=== PATIENT | female | born 1930 | race Caucasian/White ===

== ENCOUNTER 2018-02-13 13:43 | Inpatient (IN) | payer MEDICARE, MEDICAID ==
[2018-02-13 14:25] LABS: % BASOPHILS 0.2 % (0.0-2.0); % EOSINOPHILS 4.7 % (0.0-5.0); % LYMPHOCYTES 29.2 % (20.0-50.0); % MONOCYTES 7.9 % (2.0-10.0); EOSINOPHILE ABSOLUTE 0.3 Th/cmm (0.1-0.4); HEMATOCRIT 40.2 % (41.0-60); HEMOGLOBIN 13.7 gm/dL (12-16); LYMPHOCYTE ABSOLUTE 2.1 Th/cmm (1.5-3.0); MEAN CELL VOLUME 94.8 fl (81-100); MEAN CORPUSCULAR HEMOGLOBIN 32.3 pg (27.0-31.0); MEAN CORPUSCULAR HGB CONC 34.1 pg (28.0-36.0); MEAN PLATELET VOLUME 7.3 fl; MONOCYTE ABSOLUTE 0.6 Th/cmm (0.3-1.0); NEUTROPHILE ABSOLUTE 4.3 Th/cmm (1.8-8.0); PLATELET COUNT 191 Th/cmm (150-400); RED BLOOD COUNT 4.24 Mil/cmm (3.80-5.20); RED CELL DISTRIBUTION WIDTH 12.6 % (11.5-20.0); WHITE BLOOD COUNT 7.3 Th/cmm (4.8-10.8)
[2018-02-13 14:46] LABS: URINE SOURCE CLEAN C
[2018-02-13 14:46] LABS: ALB/GLOB RATIO 1.4 (1.0-1.8); ALBUMIN 4.2 gm/dL (3.7-5.3); ALKALINE PHOSPHATASE 79 U/L (34-104); BILIRUBIN,TOTAL 0.5 mg/dL (0.3-1.0); BUN - UREA NITROGEN 12 mg/dL (7-25); CALCIUM SERUM 9.7 mg/dL (8.6-10.3); CARBON DIOXIDE 26.6 mEq/L (21.0-31.0); CHLORIDE 103 mEq/L (98-107); CHOLESTEROL 202 mg/dL (<200); GLUCOSE 121 mg/dL (70-105); HDL -HIGH DENSITY LIPOPROTEIN 62 mg/dL (23-92); POTASSIUM SERUM 3.6 mEq/L (3.5-5.1); SGOT 13 U/L (13-39); SGPT/ALT 12 U/L (7-52); SODIUM SERUM 136 mEq/L (136-145); TOTAL PROTEIN,SERUM 7.2 gm/dL (6.0-8.3); TRIGLYCERIDES 200 mg/dL (<150)
[2018-02-13 14:47] LABS: ACETAMINOPHEN < 10.0 ug/mL (10.0-30.0); SALICYLATES (ASPIRIN) < 25.0 mg/L (30.0-100.0)
[2018-02-13 14:47] LABS: URINE BILIRUBIN NEGATIVE (NEGATIVE); URINE BLOOD NEGATIVE (NEGATIVE); URINE CLARITY CLEAR (CLEAR); URINE COLOR YELLOW; URINE GLUCOSE (UA) NEGATIVE (NEGATIVE); URINE KETONE NEGATIVE (NEGATIVE); URINE LEUKOCYTE ESTERASE TRACE (NEGATIVE); URINE MICROSCOPIC INDICATED? YES; URINE NITRATE NEGATIVE (NEGATIVE); URINE PH 6.5 (4.6 - 8.0); URINE PROTEIN NEGATIVE (NEGATIVE); URINE UROBILINOGEN 0.2 E.U./dL (0.2 - 1.0)
[2018-02-13 14:50] LABS: URINE BACTERIA 1+ /hpf (NONE SEEN); URINE EPITHELIAL CELLS FEW /lpf (FEW); URINE RBC 0-2 /hpf (0-5)
[2018-02-13 15:16] LABS: AMPHETAMINE URINE NEGATIVE (NEGATIVE); BARBITURATES URINE NEGATIVE (NEGATIVE); BENZODIAZEPINES QUAL URINE NEGATIVE (NEGATIVE); CANNABINOID THC NEGATIVE (NEGATIVE); COCAINE METABOLITE QUAL URINE NEGATIVE (NEGATIVE); METHADONE URINE NEGATIVE (NEGATIVE); METHAMPHETAMINES QUAL URINE NEGATIVE (NEGATIVE); OPIATES (MORPHINE) QUAL. URINE NEGATIVE (NEGATIVE); PHENCYCLIDINE (PCP) URINE NEGATIVE (NEGATIVE); TRICYCLICS (TCA) QUAL. URINE NEGATIVE (NEGATIVE)
--- NOTE | 2018-02-13 15:42 | ED Physician Chart ---
ED Chief Complaint/HPI - Patient Information Date Seen:: 02/13/18 Time Seen:: 14:00 Chief Complaint:: Hallucinations History of Present Illness:: onset x 3 days of hallucinations; no report of trauma, SIs, H/, neck pain, C/P , SOB, Abd.Pain, A/N/V/D/C, fever, chills, or weakness Allergies:: Allergies Allergy/AdvReac Type Severity Reaction Status Date / Time Penicillins [PCN] Allergy Verified 02/13/18 13:56 Vitals:: Vital Signs - 8 hr 02/13/18 13:58 Temp 97.5 F HR 79 RR 16 BP 135/75 O2 Sat % 96 Historian:: Patient, EMS Review:: Nurse's Note Reviewed, Old Chart Reviewed, EMS run form Reviewed ED Review of Systems - Review of Systems General/Constitutional: No fever, No chills, No weight loss, No weakness, No diaphoresis, No edema, No loss of appetite Skin: No skin lesions, No rash, No bruising Head: No headache, No light-headedness Eyes: No loss of vision, No pain, No diplopia ENT: No earache, No nasal drainage, No sore throat, No tinnitus Neck: No neck pain, No swelling, No thyromegaly, No stiffness, No mass noted Cardio Vascular: No chest pain, No palpitations, No PND, No orthopnea, No edema Pulmonary: No SOB, No cough, No sputum, No wheezing GI: No nausea, No vomiting, No diarrhea, No pain, No melena, No hematochezia, No constipation, No hematemesis G/U: Dysuria, No frequency, No hematuria, No nacturia [employer]: No vaginal discharge, No abnormal vaginal bleed, No contraction Musculoskeletal: No bone or joint pain, No back pain, No muscle pain Endocrine: No polyuria, No polydipsia Psychiatric: Prior psych history, No depression, No anxiety, No suicidal ideation, No homicidal ideation, Auditory hallucination, No visual hallucination Hematopoietic: No bruising, No lymphadenopathy Allergic/Immuno: No urticaria, No angioedema Neurological: No syncope, No focal symptoms, No weakness, No paresthesia, No headache, No seizure, No dizziness, Confusion, No vertigo ED Past Medical History - Past Medical History Obtainable: Yes Past Medical History: HTN, Dementia, Other (UTI) Family History: HTN Social History: Non Smoker, No Alcohol, No Drug Use, , Care Facility Surgical History: None Psychiatricy History: Schizophrenia, Dementia Medication: Reviewed Family Medical History - Family Member Mother History Unknown: Yes Son Living Status: Still Living Other Medical History: .denies med.prob. ED Physical Exam - Physical Examination General/Constitutional: Awake, Well-developed, well-nourished, Alert, No distress, GCS 15, Non-toxic appearing, Ambulatory Head: Atraumatic Eyes: Lids, conjuctiva normal, PERRL, EOMI Skin: Nl inspection, No rash, No skin lesions, No ecchymosis, Well hydrated, No lymphadenopathy ENMT: External ears, nose nl, TM canals nl, Nasal exam nl, Lips, teeth, gums nl , Oropharynx nl, Tonsils nl Neck: Nontender, Full ROM w/o pain, No JVD, No nuchal rigidity, No bruit, No mass, No stridor Respiratory: Nl effort/Exclusion, Clear to Auscultation, No Wheeze/Rhonchi/Rales Cardio Vascular: RRR, No murmur, gallop, rubs, NL S1 S2, Carotid/Femoral/Distal pulses equal bilaterally GI: No tenderness/rebounding/guarding, No organomegaly, No hernia, Normal BS's, Nondistended, No mass/bruits, No McBurney tenderness : No CVA tenderness Extremities: No tenderness or effusion, Full ROM, normal strength in all extremities, No edema, Normal digits & nails Neuro/Psych: Alert/oriented, DTR's symmetric, Normal sensory exam, Normal motor strength, Judgement/insight normal, Mood normal, Normal gait, No focal deficits Other Neuro/Psych comments:: + Hallucinations; Disoriented and Confused; Mood/Affect: Stable Misc: Normal back, No paraspinal tenderness ED Labs/Radiology/EKG Results - Lab Results Results: Laboratory Tests 02/13/18 02/13/18 02/13/18 14:20 14:20 14:40 WBC 7.3 RBC 4.24 Hgb 13.7 Hct 40.2 L MCV 94.8 MCH 32.3 H MCHC Differential 34.1 RDW 12.6 Plt Count 191 MPV 7.3 Neutrophils % 58.0 Lymphocytes % 29.2 Monocytes % 7.9 Eosinophils % 4.7 Basophils % 0.2 Sodium 136 Potassium 3.6 Chloride 103 Carbon Dioxide 26.6 Anion Gap 10.0 BUN 12 Creatinine 1.0 Est GFR ( Amer) TNP Est GFR (Non-Af Amer) TNP BUN/Creatinine Ratio 12.0 Glucose 121 H Calcium 9.7 Total Bilirubin 0.5 AST 13 ALT 12 Alkaline Phosphatase 79 Total Protein 7.2 Albumin 4.2 Globulin 3.0 Albumin/Globulin Ratio 1.4 Triglycerides 200 H Cholesterol 202 H LDL Cholesterol Direct 126 HDL Cholesterol 62 Urine Source Urine Color Urine Clarity Urine pH Ur Specific [place] Urine Protein Urine Glucose (UA) Urine Ketones Urine Blood Urine Nitrate Urine Bilirubin Urine Urobilinogen Ur Leukocyte Esterase Urine RBC Urine WBC Ur Epithelial Cells Urine Bacteria Urine Mucus Salicylates < 25.0 L Urine Opiates Screen NEGATIVE Urine Methadone Screen NEGATIVE Acetaminophen < 10.0 L Ur Barbiturates Screen NEGATIVE Ur Tricyclics Screen NEGATIVE Ur Phencyclidine Scrn NEGATIVE Amphetamines Screen NEGATIVE U Methamphetamines Scrn NEGATIVE U Benzodiazepines Scrn NEGATIVE U Cocaine Metab Screen NEGATIVE U Cannabinoids Screen NEGATIVE Ethyl Alcohol < 10 02/13/18 14:40 WBC RBC Hgb Hct MCV MCH MCHC Differential RDW Plt Count MPV Neutrophils % Lymphocytes % Monocytes % Eosinophils % Basophils % Sodium Potassium Chloride Carbon Dioxide Anion Gap BUN Creatinine Est GFR ( Amer) Est GFR (Non-Af Amer) BUN/Creatinine Ratio Glucose Calcium Total Bilirubin AST ALT Alkaline Phosphatase Total Protein Albumin Globulin Albumin/Globulin Ratio Triglycerides Cholesterol LDL Cholesterol Direct HDL Cholesterol Urine Source CLEAN C Urine Color YELLOW Urine Clarity CLEAR Urine pH 6.5 Ur Specific [place] <= 1.005 Urine Protein NEGATIVE Urine Glucose (UA) NEGATIVE Urine Ketones NEGATIVE Urine Blood NEGATIVE Urine Nitrate NEGATIVE Urine Bilirubin NEGATIVE Urine Urobilinogen 0.2 Ur Leukocyte Esterase TRACE H Urine RBC 0-2 Urine WBC 2-5 Ur Epithelial Cells FEW Urine Bacteria 1+ H Urine Mucus FEW Salicylates Urine Opiates Screen Urine Methadone Screen Acetaminophen Ur Barbiturates Screen Ur Tricyclics Screen Ur Phencyclidine Scrn Amphetamines Screen U Methamphetamines Scrn U Benzodiazepines Scrn U Cocaine Metab Screen U Cannabinoids Screen Ethyl Alcohol Comments:: Reviewed - EKG Interpretations EKG Time:: 14:32 Rate & Rhythm: 66; NSR Comments:: RBBB; non-specific st-t changes ED Septic Shock - . Is Septic Shock (SBP<90, OR Lactate>4 mmol\L) present?: No - <6hrs of presentation: Vital Signs: Vital Signs - 8 hr 02/13/18 13:58 Temp 97.5 F HR 79 RR 16 BP 135/75 O2 Sat % 96 ED Reassessment (Disposition) - Reassessment Reassessment Condition:: Improved - Diagnosis Diagnosis:: Hallucinations; Medical Clearance; UTI; Psychosis; Alzheimer's Disease; Schizophrenia - Aftercare/Follow up Instructions Aftercare/Follow-Up Instructions:: Counseled pt regarding lab results/diagnosis & need follow up, Counseled pt & family regarding lab results/diagnosis & need follow up - Patient Disposition Discharge/Transfer:: Acute Care w/in this hosp Admitted to:: [facility] Condition at Disposition:: Stable, Improved
[2018-02-13 17:07] VITALS: BP 143/84
[2018-02-13] MEDS ORDERED: Magnesium Hydroxide (MOM) 30 mL UDC PO PRN (17:13)
[2018-02-13] MEDS ORDERED: Maalox 30 mL Cup PO PRN (17:13)
[2018-02-14] MEDS: Multivitamin Tab PO SCH (09:12)
--- NOTE | 2018-02-14 16:34 | Psychiatric Evaluation ---
DATE OF SERVICE: PSYCHIATRIC INITIAL EVALUATION AND MENTAL STATUS EXAM PATIENT'S AGE: 87-year-old SEX: Female. PHYSICIAN: Dr. Holliday. CHIEF COMPLAINT: Agitation and confusion. HISTORY OF PRESENT ILLNESS: The patient is an 87-year-old female with history of dementia. The patient was brought into the hospital by her son because of increased paranoia and agitation. Apparently, the patient has been severely agitated and has been aggressive with both her sons. She is living with her older son and she has been accusing him and his of stealing her belongings and she has been hiding her belongings thinking that they are stealing it. The patient also has been forgetful and confused and has been not sleeping well at night. She also has been aggressive and more violent lately. PAST PSYCHIATRIC HISTORY: The patient has history of dementia. PAST MEDICAL HISTORY: According to the son, the patient has no major medical problems. SOCIAL HISTORY: The patient is living with her older son. The patient never , but she has 2 men in her life and she is for many years. The patient does not smoke cigarette, drink alcohol or use any street drugs. ALLERGIES: No known allergies. MENTAL STATUS EXAMINATION: The patient appears slightly older than stated age. Anxious. Cooperative. Mood not depressed nor elated. The patient speaks mainly Georgian and her son was helping with translation. The patient is paranoid. The patient also admits to auditory hallucinations and has been hearing voices, but she was not able to elaborate on what are the voices telling her. The patient denied suicidal or homicidal ideations. The patient is alert and oriented to time, place, person, and situation. Impaired immediate and recent memory, but intact remote memory. Poor insight and poor judgment. ASSESSMENT: PRIMARY DIAGNOSIS: Unspecified psychosis, rule out major depression, severe, single episode, with psychotic features. SECONDARY DIAGNOSIS: Dementia, moderate to severe, with psychotic features. TREATMENT PLAN: We will monitor the patient's behavior and condition closely. We will start the patient on Seroquel and Lexapro and will adjust the dose. ESTIMATED LENGTH OF STAY: 5-7 days. THE PATIENT'S STRENGTHS AND WEAKNESSES: The patient has supportive children and she seems to be in relatively fair health. Weaknesses is her ineffective coping and her psychosis and aggressive behavior. AFTER DISCHARGE PLAN: Outpatient treatment and followup will continue in [facility]. CRITERIA FOR DISCHARGE: We will stabilize psychotropic medications and will establish outpatient treatment plans. JOB# [id number]
--- NOTE | 2018-02-15 09:17 | Progress Notes ---
DATE: 02/15/2018 SUBJECTIVE: Chart reviewed and the patient interviewed. Also discussed the patient's condition with the staff and reviewed records and labs. The patient is still suspicious and is still paranoid. The patient also is still anxious and restless. The patient also is still suspicious about her children and still thinks they are stealing her belonging. Otherwise, the patient is calm and cooperative in the hospital with no major issues. ASSESSMENT: The patient is still paranoid and seems to be psychotic as well as forgetful. TREATMENT PLAN: I started the patient yesterday on Lexapro and Seroquel, but for unknown reason Seroquel did not start yet. We will continue the same dose. Also, continue to work on behavioral modification and on her paranoia. JOB# [id number]
[2018-02-15] MEDS: Multivitamin Tab PO SCH ×2 (09:57→10:14)
[2018-02-15] MEDS: Escitalopram Oxalate 5 mg Tab PO SCH ×2 (09:58→10:14)
--- NOTE | 2018-02-15 19:42 | History and Physical ---
History of Present Illness - HPI Chief Complaint: agitation HPI: This is a 87-year old male admitted to the geropsych unit due to agitation. Vital Signs: Last Vital Signs Temp 97.9 F 02/15/18 14:27 Pulse 85 02/15/18 14:27 Resp 19 02/15/18 14:27 BP 126/75 02/15/18 14:27 Pulse Ox 98 02/15/18 14:27 Past Medical History Cardiovascular: Report: HTN Psych: Report: Other (dementia) Family Medical History - Family Member Mother History Unknown: Yes Son History Unknown: Yes Living Status: Still Living Other Medical History: .denies med.prob. Social History Smoke: No Alcohol: None Drugs: None Lives: Skilled Nursing - Medications Home Medications: Home Medication Medication Instructions Recorded Type Ciprofloxacin [Cipro] 500 mg PO BID 02/13/18 History Memantine HCl/Donepezil HCl 1 tab PO DAILY 02/13/18 History [Namzaric 21 mg-10 mg Capsule] Quetiapine Fumarate [Seroquel] 1 tab PO HS PRN 02/13/18 History - Allergies Allergies/Adverse Reactions: Allergies Allergy/AdvReac Type Severity Reaction Status Date / Time Penicillins [PCN] Allergy Verified 02/13/18 13:56 Review of Systems - Review of Systems Constitutional: Report: No Significant Eyes: Report: No Significant ENT: Report: No Significant Respiratory: Report: No Significant Cardiovascular: Report: No Significant Gastrointestinal: Report: No Significant Genitourinary: Report: No Significant Neurological: Report: No Significant Physical Exam - Physical Exam HEENT: Report: Ears Nose Throat within normal limits Neck: Report: Within normal limits Cardiovascular Systems: Report: +s1/s2 noted, Regular, Rate and Rhythm Respiratory: Report: Breath Sounds are within normal limits Abdomen: Report: Non-tender to palpation Back: Report: Inspection of back is within normal limits. Extremities: Report: Non-tender to palpation. Skin: Report: Warm, Dry Neuro/Psych: Report: Mood affect is within normal limits - Lab Results All Lab Results last 24 hours: Microbiology 02/13/18 14:40 Urine Culture - Final Urine 02/13/18 14:09 - Final Nares NO MRSA ISOLATED - Assessment Assessment: htn dementia - Plan Plan: fall precautions cpm
[2018-02-16] MEDS: Multivitamin Tab PO SCH (08:56)
[2018-02-16] MEDS: Escitalopram Oxalate 5 mg Tab PO SCH (08:56)
--- NOTE | 2018-02-16 10:09 | Progress Notes ---
DATE: 02/16/2018 SUBJECTIVE: The patient was seen in her room. The patient is a poor historian due to medical condition. Otherwise, the patient appears to be in no acute distress. OBJECTIVE: VITAL SIGNS: Temperature 97.8, heart rate of 75, blood pressure 138/70, respiration of 18, 97% on room air. HEENT: Head is atraumatic and normocephalic. Eyes: Bilateral conjunctivae are clear. Bilateral pupils are equally round and reactive. NECK: Supple. No JVD. CARDIOVASCULAR: S1 and S2 without murmur. PULMONARY: Clear to auscultation. GASTROINTESTINAL: Soft and nontender without guarding. Positive bowel sounds. MUSCULOSKELETAL: No clubbing. No cyanosis noted. ASSESSMENT: 1. Dementia. 2. Hypertension. 3. Osteoarthritis. PLAN: I will keep the patient inpatient [facility]. We will follow up with a psychiatrist to monitor the patient's condition and behavior. Treatment plans were discussed with the patient's nurse. Treatment plans were discussed with Dr. Vance. JOB# [id number]
--- NOTE | 2018-02-16 22:10 | Progress Notes ---
DATE: 02/16/2018 SUBJECTIVE: Chart reviewed and the patient interviewed. Also, discussed the patient's condition with the staff and reviewed records and labs. The patient is still paranoid and she is still suspicious. The patient also still has episodes of agitation and irritability. She also is still accusing others of the things that does not happen. Also, the patient is still depressed. Otherwise, the patient is cooperative with her treatment and she is compliant with taking her medications. ASSESSMENT: The patient is still psychotic. TREATMENT PLAN: Continue to monitor behavior and condition and continue adjusting psychotropic medications. JOB# [id number]
--- NOTE | 2018-02-17 09:00 | General Progress Note ---
Subjective - Review of Systems Events since last encounter: patient still psychotic Objective - Results Result Diagrams: 02/13/18 14:20 02/13/18 14:20 Recent Labs: Laboratory Last Values WBC 7.3 Th/cmm (4.8-10.8) 02/13/18 14:20 RBC 4.24 Mil/cmm (3.80-5.20) 02/13/18 14:20 Hgb 13.7 gm/dL (12-16) 02/13/18 14:20 Hct 40.2 % (41.0-60) L 02/13/18 14:20 MCV 94.8 fl (81-100) 02/13/18 14:20 MCH 32.3 pg (27.0-31.0) H 02/13/18 14:20 MCHC Differential 34.1 pg (28.0-36.0) 02/13/18 14:20 RDW 12.6 % (11.5-20.0) 02/13/18 14:20 Plt Count 191 Th/cmm (150-400) 02/13/18 14:20 MPV 7.3 fl 02/13/18 14:20 Neutrophils % 58.0 % (40.0-80.0) 02/13/18 14:20 Lymphocytes % 29.2 % (20.0-50.0) 02/13/18 14:20 Monocytes % 7.9 % (2.0-10.0) 02/13/18 14:20 Eosinophils % 4.7 % (0.0-5.0) 02/13/18 14:20 Basophils % 0.2 % (0.0-2.0) 02/13/18 14:20 Sodium 136 mEq/L (136-145) 02/13/18 14:20 Potassium 3.6 mEq/L (3.5-5.1) 02/13/18 14:20 Chloride 103 mEq/L (98-107) 02/13/18 14:20 Carbon Dioxide 26.6 mEq/L (21.0-31.0) 02/13/18 14:20 Anion Gap 10.0 (7.0-16.0) 02/13/18 14:20 BUN 12 mg/dL (7-25) 02/13/18 14:20 Creatinine 1.0 mg/dL (0.6-1.2) 02/13/18 14:20 Est GFR ( Amer) TNP 02/13/18 14:20 Est GFR (Non-Af Amer) TNP 02/13/18 14:20 BUN/Creatinine Ratio 12.0 02/13/18 14:20 Glucose 121 mg/dL (70-105) H 02/13/18 14:20 Calcium 9.7 mg/dL (8.6-10.3) 02/13/18 14:20 Total Bilirubin 0.5 mg/dL (0.3-1.0) 02/13/18 14:20 AST 13 U/L (13-39) 02/13/18 14:20 ALT 12 U/L (7-52) 02/13/18 14:20 Alkaline Phosphatase 79 U/L (34-104) 02/13/18 14:20 Troponin I < 0.01 ng/mL (0.01-0.05) L 02/13/18 14:20 Total Protein 7.2 gm/dL (6.0-8.3) 02/13/18 14:20 Albumin 4.2 gm/dL (3.7-5.3) 02/13/18 14:20 Globulin 3.0 gm/dL 02/13/18 14:20 Albumin/Globulin Ratio 1.4 (1.0-1.8) 02/13/18 14:20 Triglycerides 200 mg/dL (<150) H 02/13/18 14:20 Cholesterol 202 mg/dL (<200) H 02/13/18 14:20 LDL Cholesterol Direct 126 mg/dL (75-193) 02/13/18 14:20 HDL Cholesterol 62 mg/dL (23-92) 02/13/18 14:20 TSH 1.48 uIU/ml (0.34-5.60) 02/13/18 14:20 Urine Source CLEAN C 02/13/18 14:40 Urine Color YELLOW 02/13/18 14:40 Urine Clarity CLEAR (CLEAR) 02/13/18 14:40 Urine pH 6.5 (4.6 - 8.0) 02/13/18 14:40 Ur Specific [place] <= 1.005 (1.005-1.030) 02/13/18 14:40 Urine Protein NEGATIVE mg/dL (NEGATIVE) 02/13/18 14:40 Urine Glucose (UA) NEGATIVE mg/dL (NEGATIVE) 02/13/18 14:40 Urine Ketones NEGATIVE mg/dL (NEGATIVE) 02/13/18 14:40 Urine Blood NEGATIVE (NEGATIVE) 02/13/18 14:40 Urine Nitrate NEGATIVE (NEGATIVE) 02/13/18 14:40 Urine Bilirubin NEGATIVE (NEGATIVE) 02/13/18 14:40 Urine Urobilinogen 0.2 E.U./dL (0.2 - 1.0) 02/13/18 14:40 Ur Leukocyte Esterase TRACE (NEGATIVE) H 02/13/18 14:40 Urine RBC 0-2 /hpf (0-5) 02/13/18 14:40 Urine WBC 2-5 /hpf (0-5) 02/13/18 14:40 Ur Epithelial Cells FEW /lpf (FEW) 02/13/18 14:40 Urine Bacteria 1+ /hpf (NONE SEEN) H 02/13/18 14:40 Urine Mucus FEW /lpf (FEW) 02/13/18 14:40 Salicylates < 25.0 mg/L (30.0-100.0) L 02/13/18 14:20 Urine Opiates Screen NEGATIVE (NEGATIVE) 02/13/18 14:40 Urine Methadone Screen NEGATIVE (NEGATIVE) 02/13/18 14:40 Acetaminophen < 10.0 ug/mL (10.0-30.0) L 02/13/18 14:20 Ur Barbiturates Screen NEGATIVE (NEGATIVE) 02/13/18 14:40 Ur Tricyclics Screen NEGATIVE (NEGATIVE) 02/13/18 14:40 Ur Phencyclidine Scrn NEGATIVE (NEGATIVE) 02/13/18 14:40 Amphetamines Screen NEGATIVE (NEGATIVE) 02/13/18 14:40 U Methamphetamines Scrn NEGATIVE (NEGATIVE) 02/13/18 14:40 U Benzodiazepines Scrn NEGATIVE (NEGATIVE) 02/13/18 14:40 U Cocaine Metab Screen NEGATIVE (NEGATIVE) 02/13/18 14:40 U Cannabinoids Screen NEGATIVE (NEGATIVE) 02/13/18 14:40 Ethyl Alcohol < 10 mg/dL (0-10) 02/13/18 14:20 RPR NONREACTIVE (NONREACTIVE) 02/13/18 14:20 - Physical Exam Vitals and I&O: Vital Signs Temp 97.8 F 02/17/18 05:46 Pulse 86 02/17/18 05:46 Resp 19 02/17/18 05:46 BP 137/85 02/17/18 05:46 Pulse Ox 97 02/17/18 05:46 Intake & Output 02/16/18 02/17/18 02/17/18 18:59 06:59 18:59 Intake Total 1500 480 Balance 1500 480 Intake: Oral 1500 480 Other: # Voids 3 2 # Bowel Movements 0 Active Medications: Current Medications Acetaminophen (Tylenol) 650 mg PO Q4HR PRN PRN Reason: Mild Pain / Temp above 100 Stop: 04/14/18 17:12 Al Hydrox/Mg Hydrox/Simethicone (Maalox) 30 ml PO Q4HR PRN PRN Reason: GI DISTRESS Stop: 04/14/18 17:12 Escitalopram Oxalate (Lexapro) 5 mg PO DAILY RANULFO; Protocol Stop: 04/16/18 08:59 Last Admin: 02/16/18 08:56 Dose: 5 mg Lorazepam (Ativan) 0.5 mg PO Q4HR PRN; Protocol PRN Reason: Agitation Stop: 03/15/18 17:12 Last Admin: 02/17/18 01:22 Dose: 0.5 mg Magnesium Hydroxide (Milk Of Magnesia) 30 ml PO HS PRN PRN Reason: Constipation Multivitamins/Vitamin C (Theragran) 1 tab PO DAILY RANULFO Stop: 04/15/18 08:59 Last Admin: 02/16/18 08:56 Dose: 1 tab Quetiapine Fumarate (Seroquel) 25 mg PO HS RANULFO; Protocol Stop: 04/16/18 20:59 Last Admin: 02/16/18 21:13 Dose: 25 mg Zolpidem Tartrate (Ambien) 5 mg PO HS PRN PRN Reason: Insomnia Stop: 04/14/18 17:12 Last Admin: 02/16/18 21:13 Dose: 5 mg Nutritional Asmnt/Malnutr-PDOC - Dietary Evaluation Malnutrition Findings (Please click <Entered> for more info): Nutritional Asmnt/Malnutrition Start: 02/16/18 10: 38 Text: Status: Complete Freq: Protocol: Document 02/16/18 10:38 JAMARCUS (Rec: 02/16/18 10:51 MMULHERN ANGELA- [id number]) Nutritional Asmnt/Malnutrition Patient General Information Nutritional Screening Moderate Risk Diagnosis Psychosis Pertinent Medical Hx/Surgical Hx HTN, dementia Subjective Information Patient in hallway at time of visit. Tolerating current diet order without difficulty. Current Diet Order/ Nutrition Support low cholesterol Patient / S.O Not Indicated Pertinent Medications Maalox, MOM, Theragran Pertinent Labs (02/13) TAG 200, Cholesterol 202 Nutritional Hx/Data Height 1.6 m Height (Calculated Centimeters) 160.0 Current Weight (lbs) 61.235 kg Weight (Calculated Kilograms) 61.2 Weight (Calculated Grams) 52807.0 [place] Body Weight 115 % [place] Body Weight 117 Body Mass Index (BMI) 23.9 Recent Weight Change No Weight Status Approriate GI Symptoms GI Symptoms None Last BM 02/15 x 1 Difficult in: None Food Allergies No Cultural/Ethnic/Mandaeism Belief None indicated Usual diet at home unknown Skin Integrity/Comment: Noel 22, intact Current %PO Fair (50-74%) Estimated Nutritional Goals BEE in Kcals: Using Current wt Calories/Kcals/Kg 25-30 kcal/kg using CBW 61.3kg Kcals Calculated 0526-4254 kcal/day Protein: Using Current wt Protein g/k gm/kg Protein Calculated ~60 gm/day Fluid: ml 7175-8739 ml/day (1 ml/kcal) Nutritional Problem 1. Problem Problem No nutrition diagnosis at this time Intervention/Recommendation Comments 1. Continue current diet order as tolerated by patient. 2. Encourage oral intake of meals and provided assistance with meals as needed. Expected Outcomes/Goals Expected Outcomes/Goals Oral intake >75% of meals, weight stable, nutrition related labs WNL
[2018-02-17] MEDS: Multivitamin Tab PO SCH (09:33)
[2018-02-17] MEDS: Escitalopram Oxalate 5 mg Tab PO SCH (09:33)
--- NOTE | 2018-02-17 19:18 | Progress Notes ---
DATE: SUBJECTIVE: Chart reviewed and the patient interviewed. Also discussed the patient's condition with the staff and reviewed records and labs. The patient is still in an irritable mood and she is still confused and paranoid. The patient still accusing staff with stealing her belongings and she is still talking about her family and her children taking her belongings. She also is still depressed and is still guarded and withdrawn. Otherwise, the patient is easier to redirect her. The patient denies any side effects of medications. ASSESSMENT: The patient is still confused and is still paranoid. TREATMENT PLAN: Continue to monitor behavior and condition closely. Also, continue adjusting psychotropic medications and follow up with discharge plans. [facility]# [id number]
[2018-02-18] MEDS: Multivitamin Tab PO SCH (09:15)
[2018-02-18] MEDS: Escitalopram Oxalate 5 mg Tab PO SCH (09:15)
--- NOTE | 2018-02-18 11:37 | General Progress Note ---
Subjective - Review of Systems Service Date: 02/13/18 Events since last encounter: paranoid disorganized denies pain Objective - Results Result Diagrams: 02/13/18 14:20 02/13/18 14:20 Recent Labs: Laboratory Last Values WBC 7.3 Th/cmm (4.8-10.8) 02/13/18 14:20 RBC 4.24 Mil/cmm (3.80-5.20) 02/13/18 14:20 Hgb 13.7 gm/dL (12-16) 02/13/18 14:20 Hct 40.2 % (41.0-60) L 02/13/18 14:20 MCV 94.8 fl (81-100) 02/13/18 14:20 MCH 32.3 pg (27.0-31.0) H 02/13/18 14:20 MCHC Differential 34.1 pg (28.0-36.0) 02/13/18 14:20 RDW 12.6 % (11.5-20.0) 02/13/18 14:20 Plt Count 191 Th/cmm (150-400) 02/13/18 14:20 MPV 7.3 fl 02/13/18 14:20 Neutrophils % 58.0 % (40.0-80.0) 02/13/18 14:20 Lymphocytes % 29.2 % (20.0-50.0) 02/13/18 14:20 Monocytes % 7.9 % (2.0-10.0) 02/13/18 14:20 Eosinophils % 4.7 % (0.0-5.0) 02/13/18 14:20 Basophils % 0.2 % (0.0-2.0) 02/13/18 14:20 Sodium 136 mEq/L (136-145) 02/13/18 14:20 Potassium 3.6 mEq/L (3.5-5.1) 02/13/18 14:20 Chloride 103 mEq/L (98-107) 02/13/18 14:20 Carbon Dioxide 26.6 mEq/L (21.0-31.0) 02/13/18 14:20 Anion Gap 10.0 (7.0-16.0) 02/13/18 14:20 BUN 12 mg/dL (7-25) 02/13/18 14:20 Creatinine 1.0 mg/dL (0.6-1.2) 02/13/18 14:20 Est GFR ( Amer) TNP 02/13/18 14:20 Est GFR (Non-Af Amer) TNP 02/13/18 14:20 BUN/Creatinine Ratio 12.0 02/13/18 14:20 Glucose 121 mg/dL (70-105) H 02/13/18 14:20 Calcium 9.7 mg/dL (8.6-10.3) 02/13/18 14:20 Total Bilirubin 0.5 mg/dL (0.3-1.0) 02/13/18 14:20 AST 13 U/L (13-39) 02/13/18 14:20 ALT 12 U/L (7-52) 02/13/18 14:20 Alkaline Phosphatase 79 U/L (34-104) 02/13/18 14:20 Troponin I < 0.01 ng/mL (0.01-0.05) L 02/13/18 14:20 Total Protein 7.2 gm/dL (6.0-8.3) 02/13/18 14:20 Albumin 4.2 gm/dL (3.7-5.3) 02/13/18 14:20 Globulin 3.0 gm/dL 02/13/18 14:20 Albumin/Globulin Ratio 1.4 (1.0-1.8) 02/13/18 14:20 Triglycerides 200 mg/dL (<150) H 02/13/18 14:20 Cholesterol 202 mg/dL (<200) H 02/13/18 14:20 LDL Cholesterol Direct 126 mg/dL (75-193) 02/13/18 14:20 HDL Cholesterol 62 mg/dL (23-92) 02/13/18 14:20 TSH 1.48 uIU/ml (0.34-5.60) 02/13/18 14:20 Urine Source CLEAN C 02/13/18 14:40 Urine Color YELLOW 02/13/18 14:40 Urine Clarity CLEAR (CLEAR) 02/13/18 14:40 Urine pH 6.5 (4.6 - 8.0) 02/13/18 14:40 Ur Specific [place] <= 1.005 (1.005-1.030) 02/13/18 14:40 Urine Protein NEGATIVE mg/dL (NEGATIVE) 02/13/18 14:40 Urine Glucose (UA) NEGATIVE mg/dL (NEGATIVE) 02/13/18 14:40 Urine Ketones NEGATIVE mg/dL (NEGATIVE) 02/13/18 14:40 Urine Blood NEGATIVE (NEGATIVE) 02/13/18 14:40 Urine Nitrate NEGATIVE (NEGATIVE) 02/13/18 14:40 Urine Bilirubin NEGATIVE (NEGATIVE) 02/13/18 14:40 Urine Urobilinogen 0.2 E.U./dL (0.2 - 1.0) 02/13/18 14:40 Ur Leukocyte Esterase TRACE (NEGATIVE) H 02/13/18 14:40 Urine RBC 0-2 /hpf (0-5) 02/13/18 14:40 Urine WBC 2-5 /hpf (0-5) 02/13/18 14:40 Ur Epithelial Cells FEW /lpf (FEW) 02/13/18 14:40 Urine Bacteria 1+ /hpf (NONE SEEN) H 02/13/18 14:40 Urine Mucus FEW /lpf (FEW) 02/13/18 14:40 Salicylates < 25.0 mg/L (30.0-100.0) L 02/13/18 14:20 Urine Opiates Screen NEGATIVE (NEGATIVE) 02/13/18 14:40 Urine Methadone Screen NEGATIVE (NEGATIVE) 02/13/18 14:40 Acetaminophen < 10.0 ug/mL (10.0-30.0) L 02/13/18 14:20 Ur Barbiturates Screen NEGATIVE (NEGATIVE) 02/13/18 14:40 Ur Tricyclics Screen NEGATIVE (NEGATIVE) 02/13/18 14:40 Ur Phencyclidine Scrn NEGATIVE (NEGATIVE) 02/13/18 14:40 Amphetamines Screen NEGATIVE (NEGATIVE) 02/13/18 14:40 U Methamphetamines Scrn NEGATIVE (NEGATIVE) 02/13/18 14:40 U Benzodiazepines Scrn NEGATIVE (NEGATIVE) 02/13/18 14:40 U Cocaine Metab Screen NEGATIVE (NEGATIVE) 02/13/18 14:40 U Cannabinoids Screen NEGATIVE (NEGATIVE) 02/13/18 14:40 Ethyl Alcohol < 10 mg/dL (0-10) 02/13/18 14:20 RPR NONREACTIVE (NONREACTIVE) 02/13/18 14:20 - Physical Exam Vitals and I&O: Vital Signs Temp 97.9 F 02/18/18 05:41 Pulse 74 02/18/18 05:41 Resp 20 02/18/18 05:41 BP 124/67 02/18/18 05:41 Pulse Ox 96 02/18/18 05:41 Intake & Output 02/17/18 02/18/18 02/18/18 18:59 06:59 18:59 Intake Total 120 Balance 120 Intake: Oral 120 Other: # Voids 3 # Bowel Movements 0 Active Medications: Current Medications Acetaminophen (Tylenol) 650 mg PO Q4HR PRN PRN Reason: Mild Pain / Temp above 100 Stop: 04/14/18 17:12 Al Hydrox/Mg Hydrox/Simethicone (Maalox) 30 ml PO Q4HR PRN PRN Reason: GI DISTRESS Stop: 04/14/18 17:12 Escitalopram Oxalate (Lexapro) 5 mg PO DAILY RANULFO; Protocol Stop: 04/16/18 08:59 Last Admin: 02/18/18 09:15 Dose: 5 mg Lorazepam (Ativan) 0.5 mg PO Q4HR PRN; Protocol PRN Reason: Agitation Stop: 03/15/18 17:12 Last Admin: 02/17/18 20:42 Dose: 0.5 mg Magnesium Hydroxide (Milk Of Magnesia) 30 ml PO HS PRN PRN Reason: Constipation Multivitamins/Vitamin C (Theragran) 1 tab PO DAILY RANULFO Stop: 04/15/18 08:59 Last Admin: 02/18/18 09:15 Dose: 1 tab Quetiapine Fumarate (Seroquel) 25 mg PO HS RANULFO; Protocol Stop: 04/16/18 20:59 Last Admin: 02/17/18 20:45 Dose: 25 mg Zolpidem Tartrate (Ambien) 5 mg PO HS PRN PRN Reason: Insomnia Stop: 04/14/18 17:12 Last Admin: 02/16/18 21:13 Dose: 5 mg Nutritional Asmnt/Malnutr-PDOC - Dietary Evaluation Malnutrition Findings (Please click <Entered> for more info): Nutritional Asmnt/Malnutrition Start: 02/16/18 10: 38 Text: Status: Complete Freq: Protocol: Document 02/16/18 10:38 JAMARCUS (Rec: 02/16/18 10:51 JAMARCUS MILLER- [email or web address]) Nutritional Asmnt/Malnutrition Patient General Information Nutritional Screening Moderate Risk Diagnosis Psychosis Pertinent Medical Hx/Surgical Hx HTN, dementia Subjective Information Patient in hallway at time of visit. Tolerating current diet order without difficulty. Current Diet Order/ Nutrition Support low cholesterol Patient / S.O Not Indicated Pertinent Medications Maalox, MOM, Theragran Pertinent Labs (02/13) TAG 200, Cholesterol 202 Nutritional Hx/Data Height 1.6 m Height (Calculated Centimeters) 160.0 Current Weight (lbs) 61.235 kg Weight (Calculated Kilograms) 61.2 Weight (Calculated Grams) 78640.0 [place] Body Weight 115 % [place] Body Weight 117 Body Mass Index (BMI) 23.9 Recent Weight Change No Weight Status Approriate GI Symptoms GI Symptoms None Last BM 02/15 x 1 Difficult in: None Food Allergies No Cultural/Ethnic/Yazidism Belief None indicated Usual diet at home unknown Skin Integrity/Comment: Noel 22, intact Current %PO Fair (50-74%) Estimated Nutritional Goals BEE in Kcals: Using Current wt Calories/Kcals/Kg 25-30 kcal/kg using CBW 61.3kg Kcals Calculated 4231-7764 kcal/day Protein: Using Current wt Protein g/k gm/kg Protein Calculated ~60 gm/day Fluid: ml 7486-2592 ml/day (1 ml/kcal) Nutritional Problem 1. Problem Problem No nutrition diagnosis at this time Intervention/Recommendation Comments 1. Continue current diet order as tolerated by patient. 2. Encourage oral intake of meals and provided assistance with meals as needed. Expected Outcomes/Goals Expected Outcomes/Goals Oral intake >75% of meals, weight stable, nutrition related labs WNL
--- NOTE | 2018-02-19 06:25 | Progress Notes ---
DATE: SUBJECTIVE: Chart reviewed and the patient interviewed. Also discussed the patient's condition with the staff and reviewed records and labs. The patient is still anxious and is still paranoid and confused. The patient also still needs redirections. The patient also is still interacting with peers minimally and she is still accusing staff with this feeling. The patient also is still forgetful. Otherwise, the patient is compliant with medications with no side effects of medications. ASSESSMENT: The patient is still suspicious and paranoid. TREATMENT PLAN: Continue to monitor behavior and condition closely. 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 JOB# [id number]
[2018-02-19] MEDS: Multivitamin Tab PO SCH (09:41)
[2018-02-19] MEDS: Escitalopram Oxalate 5 mg Tab PO SCH (09:41)
--- NOTE | 2018-02-19 12:16 | Internal Medicine Prog Note ---
Internal Medicine Subjective - Subjective Service Date: 02/19/18 Patient seen and examined:: with staff Patient is:: awake Per staff patient has:: tolerating meds Internal Medicine Objective - Results Result Diagrams: 02/13/18 14:20 02/13/18 14:20 Recent Labs: Laboratory Last Values WBC 7.3 Th/cmm (4.8-10.8) 02/13/18 14:20 RBC 4.24 Mil/cmm (3.80-5.20) 02/13/18 14:20 Hgb 13.7 gm/dL (12-16) 02/13/18 14:20 Hct 40.2 % (41.0-60) L 02/13/18 14:20 MCV 94.8 fl (81-100) 02/13/18 14:20 MCH 32.3 pg (27.0-31.0) H 02/13/18 14:20 MCHC Differential 34.1 pg (28.0-36.0) 02/13/18 14:20 RDW 12.6 % (11.5-20.0) 02/13/18 14:20 Plt Count 191 Th/cmm (150-400) 02/13/18 14:20 MPV 7.3 fl 02/13/18 14:20 Neutrophils % 58.0 % (40.0-80.0) 02/13/18 14:20 Lymphocytes % 29.2 % (20.0-50.0) 02/13/18 14:20 Monocytes % 7.9 % (2.0-10.0) 02/13/18 14:20 Eosinophils % 4.7 % (0.0-5.0) 02/13/18 14:20 Basophils % 0.2 % (0.0-2.0) 02/13/18 14:20 Sodium 136 mEq/L (136-145) 02/13/18 14:20 Potassium 3.6 mEq/L (3.5-5.1) 02/13/18 14:20 Chloride 103 mEq/L (98-107) 02/13/18 14:20 Carbon Dioxide 26.6 mEq/L (21.0-31.0) 02/13/18 14:20 Anion Gap 10.0 (7.0-16.0) 02/13/18 14:20 BUN 12 mg/dL (7-25) 02/13/18 14:20 Creatinine 1.0 mg/dL (0.6-1.2) 02/13/18 14:20 Est GFR ( Amer) TNP 02/13/18 14:20 Est GFR (Non-Af Amer) TNP 02/13/18 14:20 BUN/Creatinine Ratio 12.0 02/13/18 14:20 Glucose 121 mg/dL (70-105) H 02/13/18 14:20 Calcium 9.7 mg/dL (8.6-10.3) 02/13/18 14:20 Total Bilirubin 0.5 mg/dL (0.3-1.0) 02/13/18 14:20 AST 13 U/L (13-39) 02/13/18 14:20 ALT 12 U/L (7-52) 02/13/18 14:20 Alkaline Phosphatase 79 U/L (34-104) 02/13/18 14:20 Troponin I < 0.01 ng/mL (0.01-0.05) L 02/13/18 14:20 Total Protein 7.2 gm/dL (6.0-8.3) 02/13/18 14:20 Albumin 4.2 gm/dL (3.7-5.3) 02/13/18 14:20 Globulin 3.0 gm/dL 02/13/18 14:20 Albumin/Globulin Ratio 1.4 (1.0-1.8) 02/13/18 14:20 Triglycerides 200 mg/dL (<150) H 02/13/18 14:20 Cholesterol 202 mg/dL (<200) H 02/13/18 14:20 LDL Cholesterol Direct 126 mg/dL (75-193) 02/13/18 14:20 HDL Cholesterol 62 mg/dL (23-92) 02/13/18 14:20 TSH 1.48 uIU/ml (0.34-5.60) 02/13/18 14:20 Urine Source CLEAN C 02/13/18 14:40 Urine Color YELLOW 02/13/18 14:40 Urine Clarity CLEAR (CLEAR) 02/13/18 14:40 Urine pH 6.5 (4.6 - 8.0) 02/13/18 14:40 Ur Specific [place] <= 1.005 (1.005-1.030) 02/13/18 14:40 Urine Protein NEGATIVE mg/dL (NEGATIVE) 02/13/18 14:40 Urine Glucose (UA) NEGATIVE mg/dL (NEGATIVE) 02/13/18 14:40 Urine Ketones NEGATIVE mg/dL (NEGATIVE) 02/13/18 14:40 Urine Blood NEGATIVE (NEGATIVE) 02/13/18 14:40 Urine Nitrate NEGATIVE (NEGATIVE) 02/13/18 14:40 Urine Bilirubin NEGATIVE (NEGATIVE) 02/13/18 14:40 Urine Urobilinogen 0.2 E.U./dL (0.2 - 1.0) 02/13/18 14:40 Ur Leukocyte Esterase TRACE (NEGATIVE) H 02/13/18 14:40 Urine RBC 0-2 /hpf (0-5) 02/13/18 14:40 Urine WBC 2-5 /hpf (0-5) 02/13/18 14:40 Ur Epithelial Cells FEW /lpf (FEW) 02/13/18 14:40 Urine Bacteria 1+ /hpf (NONE SEEN) H 02/13/18 14:40 Urine Mucus FEW /lpf (FEW) 02/13/18 14:40 Salicylates < 25.0 mg/L (30.0-100.0) L 02/13/18 14:20 Urine Opiates Screen NEGATIVE (NEGATIVE) 02/13/18 14:40 Urine Methadone Screen NEGATIVE (NEGATIVE) 02/13/18 14:40 Acetaminophen < 10.0 ug/mL (10.0-30.0) L 02/13/18 14:20 Ur Barbiturates Screen NEGATIVE (NEGATIVE) 02/13/18 14:40 Ur Tricyclics Screen NEGATIVE (NEGATIVE) 02/13/18 14:40 Ur Phencyclidine Scrn NEGATIVE (NEGATIVE) 02/13/18 14:40 Amphetamines Screen NEGATIVE (NEGATIVE) 02/13/18 14:40 U Methamphetamines Scrn NEGATIVE (NEGATIVE) 02/13/18 14:40 U Benzodiazepines Scrn NEGATIVE (NEGATIVE) 02/13/18 14:40 U Cocaine Metab Screen NEGATIVE (NEGATIVE) 02/13/18 14:40 U Cannabinoids Screen NEGATIVE (NEGATIVE) 02/13/18 14:40 Ethyl Alcohol < 10 mg/dL (0-10) 02/13/18 14:20 RPR NONREACTIVE (NONREACTIVE) 02/13/18 14:20 - Physical Exam Vitals and I&O: Vital Signs Temp 98 F 02/19/18 05:55 Pulse 86 02/19/18 05:55 Resp 20 02/19/18 05:55 BP 145/80 02/19/18 05:55 Pulse Ox 97 02/19/18 05:55 Intake & Output 02/18/18 02/19/18 02/19/18 18:59 06:59 18:59 Intake Total 480 Balance 480 Intake: Oral 480 Other: # Voids 1 # Bowel Movements 1 Active Medications: Current Medications Acetaminophen (Tylenol) 650 mg PO Q4HR PRN PRN Reason: Mild Pain / Temp above 100 Stop: 04/14/18 17:12 Al Hydrox/Mg Hydrox/Simethicone (Maalox) 30 ml PO Q4HR PRN PRN Reason: GI DISTRESS Stop: 04/14/18 17:12 Escitalopram Oxalate (Lexapro) 5 mg PO DAILY RANULFO; Protocol Stop: 04/16/18 08:59 Last Admin: 02/19/18 09:41 Dose: 5 mg Lorazepam (Ativan) 0.5 mg PO Q4HR PRN; Protocol PRN Reason: Agitation Stop: 03/15/18 17:12 Last Admin: 02/19/18 09:41 Dose: 0.5 mg Magnesium Hydroxide (Milk Of Magnesia) 30 ml PO HS PRN PRN Reason: Constipation Multivitamins/Vitamin C (Theragran) 1 tab PO DAILY RANULFO Stop: 04/15/18 08:59 Last Admin: 02/19/18 09:41 Dose: 1 tab Quetiapine Fumarate (Seroquel) 25 mg PO HS RANULFO; Protocol Stop: 04/16/18 20:59 Last Admin: 02/18/18 20:52 Dose: 25 mg Zolpidem Tartrate (Ambien) 5 mg PO HS PRN PRN Reason: Insomnia Stop: 04/14/18 17:12 Last Admin: 02/18/18 20:52 Dose: 5 mg General: alert HEENT: NC/AT, PERRLA Neck: Supple Cardiovascular: RRR, Normal S1, Normal S2, without murmur Abdomen: soft, non-tender, non-distended, positive bowel sound Neurological: alert Internal Medicine Assmt/Plan - Assessment Assessment: htn dementia - Plan Plan: fall precautions cpm Nutritional Asmnt/Malnutr-PDOC - Dietary Evaluation Malnutrition Findings (Please click <Entered> for more info): Nutritional Asmnt/Malnutrition Start: 02/16/18 10: 38 Text: Status: Complete Freq: Protocol: Document 02/16/18 10:38 JAMARCUS (Rec: 02/16/18 10:51 JAMARCUS ANGELA- [email or web address]) Nutritional Asmnt/Malnutrition Patient General Information Nutritional Screening Moderate Risk Diagnosis Psychosis Pertinent Medical Hx/Surgical Hx HTN, dementia Subjective Information Patient in hallway at time of visit. Tolerating current diet order without difficulty. Current Diet Order/ Nutrition Support low cholesterol Patient / S.O Not Indicated Pertinent Medications Maalox, MOM, Theragran Pertinent Labs (02/13) TAG 200, Cholesterol 202 Nutritional Hx/Data Height 5 ft 3 in Height (Calculated Centimeters) 160.0 Current Weight (lbs) 135 lb Weight (Calculated Kilograms) 61.2 Weight (Calculated Grams) 96513.0 [place] Body Weight 115 % [place] Body Weight 117 Body Mass Index (BMI) 23.9 Recent Weight Change No Weight Status Approriate GI Symptoms GI Symptoms None Last BM 02/15 x 1 Difficult in: None Food Allergies No Cultural/Ethnic/Nondenominational Belief None indicated Usual diet at home unknown Skin Integrity/Comment: Noel 22, intact Current %PO Fair (50-74%) Estimated Nutritional Goals BEE in Kcals: Using Current wt Calories/Kcals/Kg 25-30 kcal/kg using CBW 61.3kg Kcals Calculated 3821-4741 kcal/day Protein: Using Current wt Protein g/k gm/kg Protein Calculated ~60 gm/day Fluid: ml 5671-2257 ml/day (1 ml/kcal) Nutritional Problem 1. Problem Problem No nutrition diagnosis at this time Intervention/Recommendation Comments 1. Continue current diet order as tolerated by patient. 2. Encourage oral intake of meals and provided assistance with meals as needed. Expected Outcomes/Goals Expected Outcomes/Goals Oral intake >75% of meals, weight stable, nutrition related labs WNL
--- NOTE | 2018-02-19 21:15 | Progress Notes ---
DATE: 02/19/2018 SUBJECTIVE: Chart reviewed and the patient interviewed. Also discussed the patient's condition with the staff and reviewed records and labs. The patient is still suspicious and paranoid. The patient also is still forgetful and needs redirections. The patient also seems to be slightly happier and less depressed. Otherwise, the patient is easier to redirect her. I spoke with the patient's son in regard to placement issue and discharge plans and he went to [facility] [place] and it seems that he lacks [facility] and the patient might be able to go there. ASSESSMENT: The patient is still paranoid, but showed some improvement. TREATMENT PLAN: Continue monitoring behavior and condition closely and continue to follow up. [facility]# [id number]
--- NOTE | 2018-02-20 08:45 | Progress Notes ---
DATE: SUBJECTIVE: Chart reviewed and the patient interviewed. Also discussed the patient's condition with the staff and reviewed records and labs. The patient is still confused and forgetful. The patient also continued pacing up and down the unit entering other patients rooms. She also still needs redirections. On the other hand, the patient is calmer and easier to redirect her. Also, she seems to be less irritable and less agitated. ASSESSMENT: The patient is still psychotic. TREATMENT PLAN: Continue to monitor behavior. Also working on the patient transfer to [facility] [place]. JOB# [id number]
[2018-02-20] MEDS: Multivitamin Tab PO SCH (09:04)
[2018-02-20] MEDS: Escitalopram Oxalate 5 mg Tab PO SCH (09:04)
--- NOTE | 2018-02-20 16:47 | Internal Medicine Prog Note ---
Internal Medicine Subjective - Subjective Patient is:: awake Per staff patient has:: tolerating meds Internal Medicine Objective - Results Result Diagrams: 02/13/18 14:20 02/13/18 14:20 Recent Labs: Laboratory Last Values WBC 7.3 Th/cmm (4.8-10.8) 02/13/18 14:20 RBC 4.24 Mil/cmm (3.80-5.20) 02/13/18 14:20 Hgb 13.7 gm/dL (12-16) 02/13/18 14:20 Hct 40.2 % (41.0-60) L 02/13/18 14:20 MCV 94.8 fl (81-100) 02/13/18 14:20 MCH 32.3 pg (27.0-31.0) H 02/13/18 14:20 MCHC Differential 34.1 pg (28.0-36.0) 02/13/18 14:20 RDW 12.6 % (11.5-20.0) 02/13/18 14:20 Plt Count 191 Th/cmm (150-400) 02/13/18 14:20 MPV 7.3 fl 02/13/18 14:20 Neutrophils % 58.0 % (40.0-80.0) 02/13/18 14:20 Lymphocytes % 29.2 % (20.0-50.0) 02/13/18 14:20 Monocytes % 7.9 % (2.0-10.0) 02/13/18 14:20 Eosinophils % 4.7 % (0.0-5.0) 02/13/18 14:20 Basophils % 0.2 % (0.0-2.0) 02/13/18 14:20 Sodium 136 mEq/L (136-145) 02/13/18 14:20 Potassium 3.6 mEq/L (3.5-5.1) 02/13/18 14:20 Chloride 103 mEq/L (98-107) 02/13/18 14:20 Carbon Dioxide 26.6 mEq/L (21.0-31.0) 02/13/18 14:20 Anion Gap 10.0 (7.0-16.0) 02/13/18 14:20 BUN 12 mg/dL (7-25) 02/13/18 14:20 Creatinine 1.0 mg/dL (0.6-1.2) 02/13/18 14:20 Est GFR ( Amer) TNP 02/13/18 14:20 Est GFR (Non-Af Amer) TNP 02/13/18 14:20 BUN/Creatinine Ratio 12.0 02/13/18 14:20 Glucose 121 mg/dL (70-105) H 02/13/18 14:20 Calcium 9.7 mg/dL (8.6-10.3) 02/13/18 14:20 Total Bilirubin 0.5 mg/dL (0.3-1.0) 02/13/18 14:20 AST 13 U/L (13-39) 02/13/18 14:20 ALT 12 U/L (7-52) 02/13/18 14:20 Alkaline Phosphatase 79 U/L (34-104) 02/13/18 14:20 Troponin I < 0.01 ng/mL (0.01-0.05) L 02/13/18 14:20 Total Protein 7.2 gm/dL (6.0-8.3) 02/13/18 14:20 Albumin 4.2 gm/dL (3.7-5.3) 02/13/18 14:20 Globulin 3.0 gm/dL 02/13/18 14:20 Albumin/Globulin Ratio 1.4 (1.0-1.8) 02/13/18 14:20 Triglycerides 200 mg/dL (<150) H 02/13/18 14:20 Cholesterol 202 mg/dL (<200) H 02/13/18 14:20 LDL Cholesterol Direct 126 mg/dL (75-193) 02/13/18 14:20 HDL Cholesterol 62 mg/dL (23-92) 02/13/18 14:20 TSH 1.48 uIU/ml (0.34-5.60) 02/13/18 14:20 Urine Source CLEAN C 02/13/18 14:40 Urine Color YELLOW 02/13/18 14:40 Urine Clarity CLEAR (CLEAR) 02/13/18 14:40 Urine pH 6.5 (4.6 - 8.0) 02/13/18 14:40 Ur Specific [place] <= 1.005 (1.005-1.030) 02/13/18 14:40 Urine Protein NEGATIVE mg/dL (NEGATIVE) 02/13/18 14:40 Urine Glucose (UA) NEGATIVE mg/dL (NEGATIVE) 02/13/18 14:40 Urine Ketones NEGATIVE mg/dL (NEGATIVE) 02/13/18 14:40 Urine Blood NEGATIVE (NEGATIVE) 02/13/18 14:40 Urine Nitrate NEGATIVE (NEGATIVE) 02/13/18 14:40 Urine Bilirubin NEGATIVE (NEGATIVE) 02/13/18 14:40 Urine Urobilinogen 0.2 E.U./dL (0.2 - 1.0) 02/13/18 14:40 Ur Leukocyte Esterase TRACE (NEGATIVE) H 02/13/18 14:40 Urine RBC 0-2 /hpf (0-5) 02/13/18 14:40 Urine WBC 2-5 /hpf (0-5) 02/13/18 14:40 Ur Epithelial Cells FEW /lpf (FEW) 02/13/18 14:40 Urine Bacteria 1+ /hpf (NONE SEEN) H 02/13/18 14:40 Urine Mucus FEW /lpf (FEW) 02/13/18 14:40 Salicylates < 25.0 mg/L (30.0-100.0) L 02/13/18 14:20 Urine Opiates Screen NEGATIVE (NEGATIVE) 02/13/18 14:40 Urine Methadone Screen NEGATIVE (NEGATIVE) 02/13/18 14:40 Acetaminophen < 10.0 ug/mL (10.0-30.0) L 02/13/18 14:20 Ur Barbiturates Screen NEGATIVE (NEGATIVE) 02/13/18 14:40 Ur Tricyclics Screen NEGATIVE (NEGATIVE) 02/13/18 14:40 Ur Phencyclidine Scrn NEGATIVE (NEGATIVE) 02/13/18 14:40 Amphetamines Screen NEGATIVE (NEGATIVE) 02/13/18 14:40 U Methamphetamines Scrn NEGATIVE (NEGATIVE) 02/13/18 14:40 U Benzodiazepines Scrn NEGATIVE (NEGATIVE) 02/13/18 14:40 U Cocaine Metab Screen NEGATIVE (NEGATIVE) 02/13/18 14:40 U Cannabinoids Screen NEGATIVE (NEGATIVE) 02/13/18 14:40 Ethyl Alcohol < 10 mg/dL (0-10) 02/13/18 14:20 RPR NONREACTIVE (NONREACTIVE) 02/13/18 14:20 - Physical Exam Vitals and I&O: Vital Signs Temp 97.1 F 02/20/18 14:29 Pulse 88 02/20/18 14:29 Resp 18 02/20/18 14:29 BP 132/70 02/20/18 14:29 Pulse Ox 96 02/20/18 14:29 Intake & Output 02/19/18 02/20/18 02/20/18 18:59 06:59 18:59 Intake Total 120 Balance 120 Intake: Oral 120 Other: # Voids 3 Active Medications: Current Medications Acetaminophen (Tylenol) 650 mg PO Q4HR PRN PRN Reason: Mild Pain / Temp above 100 Stop: 04/14/18 17:12 Al Hydrox/Mg Hydrox/Simethicone (Maalox) 30 ml PO Q4HR PRN PRN Reason: GI DISTRESS Stop: 04/14/18 17:12 Escitalopram Oxalate (Lexapro) 5 mg PO DAILY RANULFO; Protocol Stop: 04/16/18 08:59 Last Admin: 02/20/18 09:04 Dose: 5 mg Lorazepam (Ativan) 0.5 mg PO Q4HR PRN; Protocol PRN Reason: Agitation Stop: 03/15/18 17:12 Last Admin: 02/19/18 09:41 Dose: 0.5 mg Magnesium Hydroxide (Milk Of Magnesia) 30 ml PO HS PRN PRN Reason: Constipation Multivitamins/Vitamin C (Theragran) 1 tab PO DAILY RANULFO Stop: 04/15/18 08:59 Last Admin: 02/20/18 09:04 Dose: 1 tab Quetiapine Fumarate (Seroquel) 25 mg PO HS RANULFO; Protocol Stop: 04/16/18 20:59 Last Admin: 02/19/18 20:46 Dose: 25 mg Zolpidem Tartrate (Ambien) 5 mg PO HS PRN PRN Reason: Insomnia Stop: 04/14/18 17:12 Last Admin: 02/18/18 20:52 Dose: 5 mg General: alert HEENT: NC/AT, PERRLA Neck: Supple Cardiovascular: RRR, Normal S1, Normal S2, without murmur Abdomen: soft, non-tender, non-distended, positive bowel sound Neurological: alert Nutritional Asmnt/Malnutr-PDOC - Dietary Evaluation Malnutrition Findings (Please click <Entered> for more info): Nutritional Asmnt/Malnutrition Start: 02/16/18 10: 38 Text: Status: Complete Freq: Protocol: Document 02/16/18 10:38 JAMARCUS (Rec: 02/16/18 10:51 JAMARCUS MILLER- [email or web address]) Nutritional Asmnt/Malnutrition Patient General Information Nutritional Screening Moderate Risk Diagnosis Psychosis Pertinent Medical Hx/Surgical Hx HTN, dementia Subjective Information Patient in hallway at time of visit. Tolerating current diet order without difficulty. Current Diet Order/ Nutrition Support low cholesterol Patient / S.O Not Indicated Pertinent Medications Maalox, MOM, Theragran Pertinent Labs (02/13) TAG 200, Cholesterol 202 Nutritional Hx/Data Height 1.6 m Height (Calculated Centimeters) 160.0 Current Weight (lbs) 61.235 kg Weight (Calculated Kilograms) 61.2 Weight (Calculated Grams) 15252.0 [place] Body Weight 115 % [place] Body Weight 117 Body Mass Index (BMI) 23.9 Recent Weight Change No Weight Status Approriate GI Symptoms GI Symptoms None Last BM 02/15 x 1 Difficult in: None Food Allergies No Cultural/Ethnic/Orthodox Belief None indicated Usual diet at home unknown Skin Integrity/Comment: Noel 22, intact Current %PO Fair (50-74%) Estimated Nutritional Goals BEE in Kcals: Using Current wt Calories/Kcals/Kg 25-30 kcal/kg using CBW 61.3kg Kcals Calculated 6193-7646 kcal/day Protein: Using Current wt Protein g/k gm/kg Protein Calculated ~60 gm/day Fluid: ml 2447-2805 ml/day (1 ml/kcal) Nutritional Problem 1. Problem Problem No nutrition diagnosis at this time Intervention/Recommendation Comments 1. Continue current diet order as tolerated by patient. 2. Encourage oral intake of meals and provided assistance with meals as needed. Expected Outcomes/Goals Expected Outcomes/Goals Oral intake >75% of meals, weight stable, nutrition related labs WNL
[2018-02-21] MEDS: Escitalopram Oxalate 5 mg Tab PO SCH ×2 (09:12→09:15)
[2018-02-21] MEDS: Multivitamin Tab PO SCH ×2 (09:12→09:15)
--- NOTE | 2018-02-21 14:05 | Internal Medicine Prog Note ---
Internal Medicine Subjective - Subjective Patient is:: awake, other (confused) Per staff patient has:: tolerating meds Internal Medicine Objective - Results Result Diagrams: 02/13/18 14:20 02/13/18 14:20 Recent Labs: Laboratory Last Values WBC 7.3 Th/cmm (4.8-10.8) 02/13/18 14:20 RBC 4.24 Mil/cmm (3.80-5.20) 02/13/18 14:20 Hgb 13.7 gm/dL (12-16) 02/13/18 14:20 Hct 40.2 % (41.0-60) L 02/13/18 14:20 MCV 94.8 fl (81-100) 02/13/18 14:20 MCH 32.3 pg (27.0-31.0) H 02/13/18 14:20 MCHC Differential 34.1 pg (28.0-36.0) 02/13/18 14:20 RDW 12.6 % (11.5-20.0) 02/13/18 14:20 Plt Count 191 Th/cmm (150-400) 02/13/18 14:20 MPV 7.3 fl 02/13/18 14:20 Neutrophils % 58.0 % (40.0-80.0) 02/13/18 14:20 Lymphocytes % 29.2 % (20.0-50.0) 02/13/18 14:20 Monocytes % 7.9 % (2.0-10.0) 02/13/18 14:20 Eosinophils % 4.7 % (0.0-5.0) 02/13/18 14:20 Basophils % 0.2 % (0.0-2.0) 02/13/18 14:20 Sodium 136 mEq/L (136-145) 02/13/18 14:20 Potassium 3.6 mEq/L (3.5-5.1) 02/13/18 14:20 Chloride 103 mEq/L (98-107) 02/13/18 14:20 Carbon Dioxide 26.6 mEq/L (21.0-31.0) 02/13/18 14:20 Anion Gap 10.0 (7.0-16.0) 02/13/18 14:20 BUN 12 mg/dL (7-25) 02/13/18 14:20 Creatinine 1.0 mg/dL (0.6-1.2) 02/13/18 14:20 Est GFR ( Amer) TNP 02/13/18 14:20 Est GFR (Non-Af Amer) TNP 02/13/18 14:20 BUN/Creatinine Ratio 12.0 02/13/18 14:20 Glucose 121 mg/dL (70-105) H 02/13/18 14:20 Calcium 9.7 mg/dL (8.6-10.3) 02/13/18 14:20 Total Bilirubin 0.5 mg/dL (0.3-1.0) 02/13/18 14:20 AST 13 U/L (13-39) 02/13/18 14:20 ALT 12 U/L (7-52) 02/13/18 14:20 Alkaline Phosphatase 79 U/L (34-104) 02/13/18 14:20 Troponin I < 0.01 ng/mL (0.01-0.05) L 02/13/18 14:20 Total Protein 7.2 gm/dL (6.0-8.3) 02/13/18 14:20 Albumin 4.2 gm/dL (3.7-5.3) 02/13/18 14:20 Globulin 3.0 gm/dL 02/13/18 14:20 Albumin/Globulin Ratio 1.4 (1.0-1.8) 02/13/18 14:20 Triglycerides 200 mg/dL (<150) H 02/13/18 14:20 Cholesterol 202 mg/dL (<200) H 02/13/18 14:20 LDL Cholesterol Direct 126 mg/dL (75-193) 02/13/18 14:20 HDL Cholesterol 62 mg/dL (23-92) 02/13/18 14:20 TSH 1.48 uIU/ml (0.34-5.60) 02/13/18 14:20 Urine Source CLEAN C 02/13/18 14:40 Urine Color YELLOW 02/13/18 14:40 Urine Clarity CLEAR (CLEAR) 02/13/18 14:40 Urine pH 6.5 (4.6 - 8.0) 02/13/18 14:40 Ur Specific [place] <= 1.005 (1.005-1.030) 02/13/18 14:40 Urine Protein NEGATIVE mg/dL (NEGATIVE) 02/13/18 14:40 Urine Glucose (UA) NEGATIVE mg/dL (NEGATIVE) 02/13/18 14:40 Urine Ketones NEGATIVE mg/dL (NEGATIVE) 02/13/18 14:40 Urine Blood NEGATIVE (NEGATIVE) 02/13/18 14:40 Urine Nitrate NEGATIVE (NEGATIVE) 02/13/18 14:40 Urine Bilirubin NEGATIVE (NEGATIVE) 02/13/18 14:40 Urine Urobilinogen 0.2 E.U./dL (0.2 - 1.0) 02/13/18 14:40 Ur Leukocyte Esterase TRACE (NEGATIVE) H 02/13/18 14:40 Urine RBC 0-2 /hpf (0-5) 02/13/18 14:40 Urine WBC 2-5 /hpf (0-5) 02/13/18 14:40 Ur Epithelial Cells FEW /lpf (FEW) 02/13/18 14:40 Urine Bacteria 1+ /hpf (NONE SEEN) H 02/13/18 14:40 Urine Mucus FEW /lpf (FEW) 02/13/18 14:40 Salicylates < 25.0 mg/L (30.0-100.0) L 02/13/18 14:20 Urine Opiates Screen NEGATIVE (NEGATIVE) 02/13/18 14:40 Urine Methadone Screen NEGATIVE (NEGATIVE) 02/13/18 14:40 Acetaminophen < 10.0 ug/mL (10.0-30.0) L 02/13/18 14:20 Ur Barbiturates Screen NEGATIVE (NEGATIVE) 02/13/18 14:40 Ur Tricyclics Screen NEGATIVE (NEGATIVE) 02/13/18 14:40 Ur Phencyclidine Scrn NEGATIVE (NEGATIVE) 02/13/18 14:40 Amphetamines Screen NEGATIVE (NEGATIVE) 02/13/18 14:40 U Methamphetamines Scrn NEGATIVE (NEGATIVE) 02/13/18 14:40 U Benzodiazepines Scrn NEGATIVE (NEGATIVE) 02/13/18 14:40 U Cocaine Metab Screen NEGATIVE (NEGATIVE) 02/13/18 14:40 U Cannabinoids Screen NEGATIVE (NEGATIVE) 02/13/18 14:40 Ethyl Alcohol < 10 mg/dL (0-10) 02/13/18 14:20 RPR NONREACTIVE (NONREACTIVE) 02/13/18 14:20 - Physical Exam Vitals and I&O: Vital Signs Temp 97.8 F 02/21/18 06:57 Pulse 87 02/21/18 06:57 Resp 20 02/21/18 06:57 BP 155/89 02/21/18 06:57 Pulse Ox 98 02/21/18 06:57 Intake & Output 02/20/18 02/21/18 02/21/18 18:59 06:59 18:59 Other: # Voids 2 2 # Bowel Movements 0 Active Medications: Current Medications Acetaminophen (Tylenol) 650 mg PO Q4HR PRN PRN Reason: Mild Pain / Temp above 100 Stop: 04/14/18 17:12 Al Hydrox/Mg Hydrox/Simethicone (Maalox) 30 ml PO Q4HR PRN PRN Reason: GI DISTRESS Stop: 04/14/18 17:12 Escitalopram Oxalate (Lexapro) 5 mg PO DAILY RANULFO; Protocol Stop: 04/16/18 08:59 Last Admin: 02/21/18 09:15 Dose: Not Given Lorazepam (Ativan) 0.5 mg PO Q4HR PRN; Protocol PRN Reason: Agitation Stop: 03/15/18 17:12 Last Admin: 02/20/18 20:55 Dose: 0.5 mg Magnesium Hydroxide (Milk Of Magnesia) 30 ml PO HS PRN PRN Reason: Constipation Multivitamins/Vitamin C (Theragran) 1 tab PO DAILY RANULFO Stop: 04/15/18 08:59 Last Admin: 02/21/18 09:15 Dose: Not Given Quetiapine Fumarate (Seroquel) 25 mg PO HS RANULFO; Protocol Stop: 04/16/18 20:59 Last Admin: 02/20/18 20:55 Dose: 25 mg Zolpidem Tartrate (Ambien) 5 mg PO HS PRN PRN Reason: Insomnia Stop: 04/14/18 17:12 Last Admin: 02/20/18 20:55 Dose: 5 mg General: alert HEENT: NC/AT, PERRLA Neck: Supple Cardiovascular: RRR, Normal S1, Normal S2, without murmur Abdomen: soft, non-tender, non-distended, positive bowel sound Neurological: alert Internal Medicine Assmt/Plan - Assessment Assessment: dementia HTN - Plan Plan: as per psych continue with current plan Nutritional Asmnt/Malnutr-PDOC - Dietary Evaluation Malnutrition Findings (Please click <Entered> for more info): Nutritional Asmnt/Malnutrition Start: 02/16/18 10: 38 Text: Status: Complete Freq: Protocol: Document 02/16/18 10:38 [email or web address] (Rec: 02/16/18 10:51 JAMARCUS ANGELA- [id number]) Nutritional Asmnt/Malnutrition Patient General Information Nutritional Screening Moderate Risk Diagnosis Psychosis Pertinent Medical Hx/Surgical Hx HTN, dementia Subjective Information Patient in hallway at time of visit. Tolerating current diet order without difficulty. Current Diet Order/ Nutrition Support low cholesterol Patient / S.O Not Indicated Pertinent Medications Maalox, MOM, Theragran Pertinent Labs (02/13) TAG 200, Cholesterol 202 Nutritional Hx/Data Height 1.6 m Height (Calculated Centimeters) 160.0 Current Weight (lbs) 61.235 kg Weight (Calculated Kilograms) 61.2 Weight (Calculated Grams) 96328.0 [place] Body Weight 115 % [place] Body Weight 117 Body Mass Index (BMI) 23.9 Recent Weight Change No Weight Status Approriate GI Symptoms GI Symptoms None Last BM 02/15 x 1 Difficult in: None Food Allergies No Cultural/Ethnic/[employer] Belief None indicated Usual diet at home unknown Skin Integrity/Comment: Noel 22, intact Current %PO Fair (50-74%) Estimated Nutritional Goals BEE in Kcals: Using Current wt Calories/Kcals/Kg 25-30 kcal/kg using CBW 61.3kg Kcals Calculated 9759-4007 kcal/day Protein: Using Current wt Protein g/k gm/kg Protein Calculated ~60 gm/day Fluid: ml 9913-7343 ml/day (1 ml/kcal) Nutritional Problem 1. Problem Problem No nutrition diagnosis at this time Intervention/Recommendation Comments 1. Continue current diet order as tolerated by patient. 2. Encourage oral intake of meals and provided assistance with meals as needed. Expected Outcomes/Goals Expected Outcomes/Goals Oral intake >75% of meals, weight stable, nutrition related labs WNL
--- NOTE | 2018-02-22 06:11 | Progress Notes ---
DATE: SUBJECTIVE: Chart reviewed and the patient interviewed. Also discussed the patient's condition with the staff and reviewed records and labs. The patient is still suspicious and paranoid. The patient also still seems to be slightly confused especially with the environment in the hospital and the patient is still at times pacing up and down, but she seems to be less agitated and less irritable. She is still forgetful and confused, but no major behavioral problems. ASSESSMENT: The patient is still psychotic. TREATMENT PLAN: Plan is to talk to the patient's son today in regard to her condition and the discharge plans. At the same time, we will continue Risperdal at the same dose and also we will plan to increase the dose. Also, we will work with [facility] in regard to placement issue there. JOB# [id number]
--- NOTE | 2018-02-22 07:53 | Discharge Summary ---
DATE OF DISCHARGE: 02/22/2018 PATIENT'S AGE: 87. SEX: Female. PHYSICIAN: Hermila Holliday MD, MPH FINAL DIAGNOSIS: PRIMARY DIAGNOSES: Depressive mood disorder, severe, single episode, with psychotic features. REASON FOR HOSPITALIZATION: The patient was admitted to the hospital because of confusion and because of agitation and inability to follow directions. The patient also is accusing her family, especially her son was stealing her belongings and stealing her money. She also was getting aggressive and was getting physical problems with her son and the family and the patient was brought into the hospital. HOSPITAL COURSE: The patient continued to be confused and continued to be agitated and irritable. The patient also was continued to be confused and she kept wandering in to other patient's rooms. She also was easily agitated and kept accusing staff and others with behavioral issues. The patient was started on Risperdal. Gradually, the patient's affect was brighter. The patient was less irritable and less agitated. The patient also was easier to redirect her. I discussed with the patient's son discharge plans and placement issue. The patient's son agreed that the patient can go to [facility] [place]. I contacted the clerical administrator of [facility] [place] and he agreed to accept the patient. The patient's son also went to [facility] [place] and he agreed to discharge her there with the plan for followup. On the day prior to her discharge, I called the patient's son and discussed with him further treatment plans and further treatment options. The patient's son said that he felt that his mother showed improvement in the beginning of her hospitalizations, and also that the medication still will be adjusted in the facility. Seroquel on the day of discharge, increase it to 37.5 mg and she continued to take Lexapro 5 mg with no side effects. Physical exam of the patient was basically within normal and the patient has no major medical problems while in the hospital. Blood workup showed hematocrit of 40.2 and glucose level upon admission was 122. Also cholesterol was 202 and triglyceride was still 100. The patient will be followed in [facility] [place] [facility] after discharge today. JOB# [id number]
[2018-02-22] MEDS: Escitalopram Oxalate 5 mg Tab PO SCH (08:34)
[2018-02-22] MEDS: Multivitamin Tab PO SCH (08:34)
--- NOTE | 2018-02-22 13:50 | Internal Medicine Prog Note ---
Internal Medicine Subjective - Subjective Service Date: 02/22/18 Patient is:: awake, other (confused) Per staff patient has:: tolerating meds Internal Medicine Objective - Results Result Diagrams: 02/13/18 14:20 02/13/18 14:20 Recent Labs: Laboratory Last Values WBC 7.3 Th/cmm (4.8-10.8) 02/13/18 14:20 RBC 4.24 Mil/cmm (3.80-5.20) 02/13/18 14:20 Hgb 13.7 gm/dL (12-16) 02/13/18 14:20 Hct 40.2 % (41.0-60) L 02/13/18 14:20 MCV 94.8 fl (81-100) 02/13/18 14:20 MCH 32.3 pg (27.0-31.0) H 02/13/18 14:20 MCHC Differential 34.1 pg (28.0-36.0) 02/13/18 14:20 RDW 12.6 % (11.5-20.0) 02/13/18 14:20 Plt Count 191 Th/cmm (150-400) 02/13/18 14:20 MPV 7.3 fl 02/13/18 14:20 Neutrophils % 58.0 % (40.0-80.0) 02/13/18 14:20 Lymphocytes % 29.2 % (20.0-50.0) 02/13/18 14:20 Monocytes % 7.9 % (2.0-10.0) 02/13/18 14:20 Eosinophils % 4.7 % (0.0-5.0) 02/13/18 14:20 Basophils % 0.2 % (0.0-2.0) 02/13/18 14:20 Sodium 136 mEq/L (136-145) 02/13/18 14:20 Potassium 3.6 mEq/L (3.5-5.1) 02/13/18 14:20 Chloride 103 mEq/L (98-107) 02/13/18 14:20 Carbon Dioxide 26.6 mEq/L (21.0-31.0) 02/13/18 14:20 Anion Gap 10.0 (7.0-16.0) 02/13/18 14:20 BUN 12 mg/dL (7-25) 02/13/18 14:20 Creatinine 1.0 mg/dL (0.6-1.2) 02/13/18 14:20 Est GFR ( Amer) TNP 02/13/18 14:20 Est GFR (Non-Af Amer) TNP 02/13/18 14:20 BUN/Creatinine Ratio 12.0 02/13/18 14:20 Glucose 121 mg/dL (70-105) H 02/13/18 14:20 Calcium 9.7 mg/dL (8.6-10.3) 02/13/18 14:20 Total Bilirubin 0.5 mg/dL (0.3-1.0) 02/13/18 14:20 AST 13 U/L (13-39) 02/13/18 14:20 ALT 12 U/L (7-52) 02/13/18 14:20 Alkaline Phosphatase 79 U/L (34-104) 02/13/18 14:20 Troponin I < 0.01 ng/mL (0.01-0.05) L 02/13/18 14:20 Total Protein 7.2 gm/dL (6.0-8.3) 02/13/18 14:20 Albumin 4.2 gm/dL (3.7-5.3) 02/13/18 14:20 Globulin 3.0 gm/dL 02/13/18 14:20 Albumin/Globulin Ratio 1.4 (1.0-1.8) 02/13/18 14:20 Triglycerides 200 mg/dL (<150) H 02/13/18 14:20 Cholesterol 202 mg/dL (<200) H 02/13/18 14:20 LDL Cholesterol Direct 126 mg/dL (75-193) 02/13/18 14:20 HDL Cholesterol 62 mg/dL (23-92) 02/13/18 14:20 TSH 1.48 uIU/ml (0.34-5.60) 02/13/18 14:20 Urine Source CLEAN C 02/13/18 14:40 Urine Color YELLOW 02/13/18 14:40 Urine Clarity CLEAR (CLEAR) 02/13/18 14:40 Urine pH 6.5 (4.6 - 8.0) 02/13/18 14:40 Ur Specific [place] <= 1.005 (1.005-1.030) 02/13/18 14:40 Urine Protein NEGATIVE mg/dL (NEGATIVE) 02/13/18 14:40 Urine Glucose (UA) NEGATIVE mg/dL (NEGATIVE) 02/13/18 14:40 Urine Ketones NEGATIVE mg/dL (NEGATIVE) 02/13/18 14:40 Urine Blood NEGATIVE (NEGATIVE) 02/13/18 14:40 Urine Nitrate NEGATIVE (NEGATIVE) 02/13/18 14:40 Urine Bilirubin NEGATIVE (NEGATIVE) 02/13/18 14:40 Urine Urobilinogen 0.2 E.U./dL (0.2 - 1.0) 02/13/18 14:40 Ur Leukocyte Esterase TRACE (NEGATIVE) H 02/13/18 14:40 Urine RBC 0-2 /hpf (0-5) 02/13/18 14:40 Urine WBC 2-5 /hpf (0-5) 02/13/18 14:40 Ur Epithelial Cells FEW /lpf (FEW) 02/13/18 14:40 Urine Bacteria 1+ /hpf (NONE SEEN) H 02/13/18 14:40 Urine Mucus FEW /lpf (FEW) 02/13/18 14:40 Salicylates < 25.0 mg/L (30.0-100.0) L 02/13/18 14:20 Urine Opiates Screen NEGATIVE (NEGATIVE) 02/13/18 14:40 Urine Methadone Screen NEGATIVE (NEGATIVE) 02/13/18 14:40 Acetaminophen < 10.0 ug/mL (10.0-30.0) L 02/13/18 14:20 Ur Barbiturates Screen NEGATIVE (NEGATIVE) 02/13/18 14:40 Ur Tricyclics Screen NEGATIVE (NEGATIVE) 02/13/18 14:40 Ur Phencyclidine Scrn NEGATIVE (NEGATIVE) 02/13/18 14:40 Amphetamines Screen NEGATIVE (NEGATIVE) 02/13/18 14:40 U Methamphetamines Scrn NEGATIVE (NEGATIVE) 02/13/18 14:40 U Benzodiazepines Scrn NEGATIVE (NEGATIVE) 02/13/18 14:40 U Cocaine Metab Screen NEGATIVE (NEGATIVE) 02/13/18 14:40 U Cannabinoids Screen NEGATIVE (NEGATIVE) 02/13/18 14:40 Ethyl Alcohol < 10 mg/dL (0-10) 02/13/18 14:20 RPR NONREACTIVE (NONREACTIVE) 02/13/18 14:20 - Physical Exam Vitals and I&O: Vital Signs Temp 97.8 F 02/22/18 10:59 Pulse 75 02/22/18 10:59 Resp 19 02/22/18 10:59 BP 115/45 02/22/18 10:59 Pulse Ox 98 02/22/18 10:59 Intake & Output 02/21/18 02/22/18 02/22/18 18:59 06:59 18:59 Intake Total 240 360 Balance 240 360 Intake: Oral 240 360 Other: # Voids 2 2 # Bowel Movements 1 0 Active Medications: Current Medications Acetaminophen (Tylenol) 650 mg PO Q4HR PRN PRN Reason: Mild Pain / Temp above 100 Stop: 04/14/18 17:12 Al Hydrox/Mg Hydrox/Simethicone (Maalox) 30 ml PO Q4HR PRN PRN Reason: GI DISTRESS Stop: 04/14/18 17:12 Escitalopram Oxalate (Lexapro) 5 mg PO DAILY RANULFO; Protocol Stop: 04/16/18 08:59 Last Admin: 02/22/18 08:34 Dose: 5 mg Lorazepam (Ativan) 0.5 mg PO Q4HR PRN; Protocol PRN Reason: Agitation Stop: 03/15/18 17:12 Last Admin: 02/20/18 20:55 Dose: 0.5 mg Magnesium Hydroxide (Milk Of Magnesia) 30 ml PO HS PRN PRN Reason: Constipation Multivitamins/Vitamin C (Theragran) 1 tab PO DAILY RANULFO Stop: 04/15/18 08:59 Last Admin: 02/22/18 08:34 Dose: 1 tab Quetiapine Fumarate (Seroquel) 37.5 mg PO HS RANULFO; Protocol Stop: 04/23/18 20:59 Zolpidem Tartrate (Ambien) 5 mg PO HS PRN PRN Reason: Insomnia Stop: 04/14/18 17:12 Last Admin: 02/21/18 21:41 Dose: 5 mg General: alert HEENT: NC/AT, PERRLA Neck: Supple Cardiovascular: RRR, Normal S1, Normal S2, without murmur Abdomen: soft, non-tender, non-distended, positive bowel sound Neurological: alert Internal Medicine Assmt/Plan - Assessment Assessment: htn dementia - Plan Plan: fall precautions cpm Nutritional Asmnt/Malnutr-PDOC - Dietary Evaluation Malnutrition Findings (Please click <Entered> for more info): Nutritional Asmnt/Malnutrition Start: 02/16/18 10: 38 Text: Status: Complete Freq: Protocol: Document 02/16/18 10:38 JAMARCUS (Rec: 02/16/18 10:51 JAMARCUS ANGELA- [email or web address]) Nutritional Asmnt/Malnutrition Patient General Information Nutritional Screening Moderate Risk Diagnosis Psychosis Pertinent Medical Hx/Surgical Hx HTN, dementia Subjective Information Patient in hallway at time of visit. Tolerating current diet order without difficulty. Current Diet Order/ Nutrition Support low cholesterol Patient / S.O Not Indicated Pertinent Medications Maalox, MOM, Theragran Pertinent Labs (02/13) TAG 200, Cholesterol 202 Nutritional Hx/Data Height 5 ft 3 in Height (Calculated Centimeters) 160.0 Current Weight (lbs) 135 lb Weight (Calculated Kilograms) 61.2 Weight (Calculated Grams) 68172.0 [place] Body Weight 115 % [place] Body Weight 117 Body Mass Index (BMI) 23.9 Recent Weight Change No Weight Status Approriate GI Symptoms GI Symptoms None Last BM 02/15 x 1 Difficult in: None Food Allergies No Cultural/Ethnic/[employer] Belief None indicated Usual diet at home unknown Skin Integrity/Comment: Noel 22, intact Current %PO Fair (50-74%) Estimated Nutritional Goals BEE in Kcals: Using Current wt Calories/Kcals/Kg 25-30 kcal/kg using CBW 61.3kg Kcals Calculated 0953-3487 kcal/day Protein: Using Current wt Protein g/k gm/kg Protein Calculated ~60 gm/day Fluid: ml 8524-3036 ml/day (1 ml/kcal) Nutritional Problem 1. Problem Problem No nutrition diagnosis at this time Intervention/Recommendation Comments 1. Continue current diet order as tolerated by patient. 2. Encourage oral intake of meals and provided assistance with meals as needed. Expected Outcomes/Goals Expected Outcomes/Goals Oral intake >75% of meals, weight stable, nutrition related labs WNL
== END 2018-02-22 12:30 | DRG 885 ==
LOC: ER 13:43 → GERO2 16:11
PROVIDERS: ADMIT Psychiatry & Neurology Psychiatry; ATTEND Psychiatry & Neurology Psychiatry
DX: F32.3 Major depressive disorder, single episode, severe with psychotic features (principal); N39.0 Urinary tract infection, site not specified; F02.81 Dementia in other diseases classified elsewhere, unspecified severity, with behavioral disturbance; I10 Essential (primary) hypertension; G30.9 Alzheimer's disease, unspecified; F29 Unspecified psychosis not due to a substance or known physiological condition; M19.90 Unspecified osteoarthritis, unspecified site; Z88.0 Allergy status to penicillin; Z82.49 Family history of ischemic heart disease and other diseases of the circulatory system; Z79.899 Other long term (current) drug therapy
CPT/HCPCS: 36415-UA; 80053-TC; 80061-TC; 80307; 80320-TC; 80329-TC; 81001-TC; 83036-90; 84443-TC; 84484-TC; 85025-TC; 86592-TC; 87086-90; 93005; G0410; Z7610

== ENCOUNTER 2018-12-09 10:38 | Emergency (ER) | payer MEDICARE, MEDICAID ==
--- NOTE | 2018-12-09 11:14 | ED Physician Chart ---
ED Chief Complaint/HPI - Patient Information Date Seen:: 12/09/18 Time Seen:: 11:00 Chief Complaint:: R hip and pelvic pain. History of Present Illness:: Brought in by ambulance from nursing facility because pt has been noticed to have pain in R hip and pelvic region after a fall. Pt has h/o dementia and is not fully cooperative; thus, H & P are limited. Interpretation was provided by ambulance staff member Ms. Rivera while pt was awaiting to be put in a bed at the ER. Allergies:: Allergies Allergy/AdvReac Type Severity Reaction Status Date / Time Penicillins [PCN] Allergy Verified 02/13/18 13:56 Vitals:: Vital Signs - 8 hr 12/09/18 10:41 Temp 97.2 F HR 70 RR 18 BP 115/85 O2 Sat % 93 Historian:: Patient, Medical Records (from transferring facililty.) Family MD/PCP:: Dr. Vance LMP:: Postmenopausal. Review:: Nurse's Note Reviewed, Transfer documents Reviewed ED Review of Systems - Review of Systems General/Constitutional: Other (Pt does not cooperate to provide reliable info for ROS.) ED Past Medical History - Past Medical History Past Medical History: Dementia Family History: Other (Pt does not cooperate to provide info on FHx.) Social History: Care Facility, Other (Pt does not cooperate to provide info on SHx.) Employment:: Retired. Surgical History: other (Pt does not cooperate to provide info on Surgical Hx.) Medication: Reviewed Family Medical History - Family Member Mother History Unknown: Yes Son History Unknown: Yes Living Status: Still Living ED Physical Exam - Physical Examination General/Constitutional: Awake, Well-developed, well-nourished (elderly female), Alert, No distress, Non-toxic appearing Other Gen/Cons comments:: Breathes comfortably, speaks clearly, but is not fully cooperative. Head: Atraumatic Eyes: Lids, conjuctiva normal, PERRL, EOMI Skin: No ecchymosis, Well hydrated, No lymphadenopathy ENMT: External ears, nose nl, Nasal exam nl, Oropharynx nl Neck: Nontender, Full ROM w/o pain, No JVD, No nuchal rigidity, No mass Respiratory: Nl effort/Exclusion, Clear to Auscultation, No Wheeze/Rhonchi/Rales Cardio Vascular: RRR, No murmur, gallop, rubs GI: No tenderness/rebounding/guarding, No organomegaly, Normal BS's, Nondistended, No mass/bruits Other GI comments:: Abdomen is soft. : No CVA tenderness Other Extremities comments:: RLE: Tenderness at medial aspect of R hip. ROM is not well assessed due to pain with movement. No gross deformity, erythema, swelling, ecchymosis, or open wound. Mild tenderness at anterior aspect of right knee with good ROM. No gross deformity, erythema, swelling, ecchymosis, or open wound. Negative Drawer's sign. Stable MCL and LCL. No leg length discrepancy compared to LLE. No detectable motor/sensory/vascular deficit. Neuro/Psych: Alert/oriented (knows her name.) Other Neuro/Psych comments:: Spontaneous movements noticed in all 4 extremities. Pt does not cooperate for full neurological exam. ED Labs/Radiology/EKG Results - Lab Results Results: Laboratory Tests 12/09/18 12/09/18 12/09/18 11:45 11:45 11:45 WBC 9.5 RBC 4.26 Hgb 13.6 Hct 40.0 L MCV 94.1 MCH 31.9 H MCHC Differential 33.9 RDW 11.9 Plt Count 174 MPV 7.0 Neutrophils % 80.8 H Lymphocytes % 13.7 L Monocytes % 2.8 Eosinophils % 2.3 Basophils % 0.4 PT 9.7 INR 0.93 PTT (Actin FS) 26.3 Sodium 134 L Potassium 4.1 Chloride 103 Carbon Dioxide 25.9 Anion Gap 9.2 BUN 23 Creatinine 0.9 Est GFR ( Amer) TNP Est GFR (Non-Af Amer) TNP BUN/Creatinine Ratio 25.6 Glucose 103 Calcium 9.1 Total Bilirubin 0.5 AST 10 L ALT 9 Alkaline Phosphatase 61 Troponin I Total Protein 6.8 Albumin 3.7 Globulin 3.1 Albumin/Globulin Ratio 1.2 12/09/18 11:45 WBC RBC Hgb Hct MCV MCH MCHC Differential RDW Plt Count MPV Neutrophils % Lymphocytes % Monocytes % Eosinophils % Basophils % PT INR PTT (Actin FS) Sodium Potassium Chloride Carbon Dioxide Anion Gap BUN Creatinine Est GFR ( Amer) Est GFR (Non-Af Amer) BUN/Creatinine Ratio Glucose Calcium Total Bilirubin AST ALT Alkaline Phosphatase Troponin I 0.04 Total Protein Albumin Globulin Albumin/Globulin Ratio Laboratory Last Values WBC 9.5 Th/cmm (4.8-10.8) 12/09/18 11:45 RBC 4.26 Mil/cmm (3.80-5.20) 12/09/18 11:45 Hgb 13.6 gm/dL (12-16) 12/09/18 11:45 Hct 40.0 % (41.0-60) L 12/09/18 11:45 MCV 94.1 fl (81-100) 12/09/18 11:45 MCH 31.9 pg (27.0-31.0) H 12/09/18 11:45 MCHC Differential 33.9 pg (28.0-36.0) 12/09/18 11:45 RDW 11.9 % (11.5-20.0) 12/09/18 11:45 Plt Count 174 Th/cmm (150-400) 12/09/18 11:45 MPV 7.0 fl 12/09/18 11:45 Neutrophils % 80.8 % (40.0-80.0) H 12/09/18 11:45 Lymphocytes % 13.7 % (20.0-50.0) L 12/09/18 11:45 Monocytes % 2.8 % (2.0-10.0) 12/09/18 11:45 Eosinophils % 2.3 % (0.0-5.0) 12/09/18 11:45 Basophils % 0.4 % (0.0-2.0) 12/09/18 11:45 PT 9.7 SECONDS (9.5-11.5) 12/09/18 11:45 INR 0.93 (0.5-1.4) 12/09/18 11:45 PTT (Actin FS) 26.3 SECONDS (26.0-38.0) 12/09/18 11:45 Sodium 134 mEq/L (136-145) L 12/09/18 11:45 Potassium 4.1 mEq/L (3.5-5.1) 12/09/18 11:45 Chloride 103 mEq/L (98-107) 12/09/18 11:45 Carbon Dioxide 25.9 mEq/L (21.0-31.0) 12/09/18 11:45 Anion Gap 9.2 (7.0-16.0) 12/09/18 11:45 BUN 23 mg/dL (7-25) 12/09/18 11:45 Creatinine 0.9 mg/dL (0.6-1.2) 12/09/18 11:45 Est GFR ( Amer) TNP 12/09/18 11:45 Est GFR (Non-Af Amer) TNP 12/09/18 11:45 BUN/Creatinine Ratio 25.6 12/09/18 11:45 Glucose 103 mg/dL (70-105) 12/09/18 11:45 Calcium 9.1 mg/dL (8.6-10.3) 12/09/18 11:45 Total Bilirubin 0.5 mg/dL (0.3-1.0) 12/09/18 11:45 AST 10 U/L (13-39) L 12/09/18 11:45 ALT 9 U/L (7-52) 12/09/18 11:45 Alkaline Phosphatase 61 U/L (34-104) 12/09/18 11:45 Troponin I 0.04 ng/mL (0.01-0.05) 12/09/18 11:45 Total Protein 6.8 gm/dL (6.0-8.3) 12/09/18 11:45 Albumin 3.7 gm/dL (3.7-5.3) 12/09/18 11:45 Globulin 3.1 gm/dL 12/09/18 11:45 Albumin/Globulin Ratio 1.2 (1.0-1.8) 12/09/18 11:45 Urine Source CLEAN C 12/09/18 13:00 Urine Color YELLOW 12/09/18 13:00 Urine Clarity CLOUDY (CLEAR) H 12/09/18 13:00 Urine pH 6.0 (4.6 - 8.0) 12/09/18 13:00 Ur Specific [place] 1.020 (1.005-1.030) 12/09/18 13:00 Urine Protein NEGATIVE mg/dL (NEGATIVE) 12/09/18 13:00 Urine Glucose (UA) NEGATIVE mg/dL (NEGATIVE) 12/09/18 13:00 Urine Ketones NEGATIVE mg/dL (NEGATIVE) 12/09/18 13:00 Urine Blood NEGATIVE (NEGATIVE) 12/09/18 13:00 Urine Nitrate POSITIVE (NEGATIVE) H 12/09/18 13:00 Urine Bilirubin NEGATIVE (NEGATIVE) 12/09/18 13:00 Urine Urobilinogen 0.2 E.U./dL (0.2 - 1.0) 12/09/18 13:00 Ur Leukocyte Esterase SMALL (NEGATIVE) H 12/09/18 13:00 Urine RBC 5-10 /hpf (0-5) H 12/09/18 13:00 Urine WBC 50-100 /hpf (0-5) H 12/09/18 13:00 Ur Epithelial Cells OCCASIONAL /lpf (FEW) 12/09/18 13:00 Urine Bacteria 3+ /hpf (NONE SEEN) H 12/09/18 13:00 - Radiology Results Results: R hip X-ray: Based on my interpretation, impacted fracture at femoral neck. Official report is pending. Pelvic X-ray: Based on my interpretation, impacted fracture at R femoral neck. Degenerative changes. Official report is pending. R knee X-ray: Based on my interpretation, degenerative changes. No acute fracture or subluxation. Official report is pending. CT of R hip: Mildly displaced slightly impacted right femoral neck fracture. Official report per Dr. Evan Vang, radiologist. - EKG Interpretations EKG Time:: 11:39 Rate & Rhythm: NSR with VR 64 Comments:: RBBB. NSSTT changes. ED Septic Shock - . Is Septic Shock (SBP<90, OR Lactate>4 mmol\L) present?: No - <6hrs of presentation: Vital Signs: Vital Signs - 8 hr 12/09/18 10:41 Temp 97.2 F HR 70 RR 18 BP 115/85 O2 Sat % 93 ED Reassessment (Disposition) - Reassessment Reassessment:: 1330- Pt has been repeatedly evaluated. Pt remains stable. 1999 Pt remains stable and comfortable. Case was discussed with Dr. Moscoso earlier with pertinent info reviewed. Pt has just been accepted to be transferred to [facility] for further inpatient care. Reassessment Condition:: Improved - Diagnosis Diagnosis:: S/P fall with R hip impacted fracture at femoral neck and R knee contusion. Urinary tract infection. H/O dementia. - Patient Disposition Discharge/Transfer:: Acute Care (other hosp) ([facility].) Transport Method:: BLS Spoke to:: Dr. Antonio Moscoso Admitting Medical Physician:: Antonio Moscoso Time:: 20:00 Condition at Disposition:: Stable
[2018-12-09 11:55] LABS: % BASOPHILS 0.4 % (0.0-2.0); % EOSINOPHILS 2.3 % (0.0-5.0); % LYMPHOCYTES 13.7 % (20.0-50.0); % MONOCYTES 2.8 % (2.0-10.0); % NEUTROPHILS 80.8 % (40.0-80.0); EOSINOPHILE ABSOLUTE 0.2 Th/cmm (0.1-0.4); HEMOGLOBIN 13.6 gm/dL (12-16); LYMPHOCYTE ABSOLUTE 1.3 Th/cmm (1.5-3.0); MEAN CELL VOLUME 94.1 fl (81-100); MEAN CORPUSCULAR HEMOGLOBIN 31.9 pg (27.0-31.0); MEAN CORPUSCULAR HGB CONC 33.9 pg (28.0-36.0); MONOCYTE ABSOLUTE 0.3 Th/cmm (0.3-1.0); NEUTROPHILE ABSOLUTE 7.7 Th/cmm (1.8-8.0); PLATELET COUNT 174 Th/cmm (150-400); RED BLOOD COUNT 4.26 Mil/cmm (3.80-5.20); RED CELL DISTRIBUTION WIDTH 11.9 % (11.5-20.0); WHITE BLOOD COUNT 9.5 Th/cmm (4.8-10.8)
[2018-12-09 12:05] LABS: INR 0.93 (0.5-1.4)
[2018-12-09 12:09] LABS: ALB/GLOB RATIO 1.2 (1.0-1.8); ALBUMIN 3.7 gm/dL (3.7-5.3); ALKALINE PHOSPHATASE 61 U/L (34-104); ANION GAP 9.2 (7.0-16.0); BILIRUBIN,TOTAL 0.5 mg/dL (0.3-1.0); BUN - UREA NITROGEN 23 mg/dL (7-25); CALCIUM SERUM 9.1 mg/dL (8.6-10.3); CARBON DIOXIDE 25.9 mEq/L (21.0-31.0); CHLORIDE 103 mEq/L (98-107); CREATININE - SERUM 0.9 mg/dL (0.6-1.2); GLUCOSE 103 mg/dL (70-105); POTASSIUM SERUM 4.1 mEq/L (3.5-5.1); SGOT 10 U/L (13-39); SGPT/ALT 9 U/L (7-52); SODIUM SERUM 134 mEq/L (136-145); TOTAL PROTEIN,SERUM 6.8 gm/dL (6.0-8.3)
[2018-12-09 13:16] LABS: URINE SOURCE CLEAN C
[2018-12-09 13:19] LABS: URINE BILIRUBIN NEGATIVE (NEGATIVE); URINE BLOOD NEGATIVE (NEGATIVE); URINE GLUCOSE (UA) NEGATIVE (NEGATIVE); URINE KETONE NEGATIVE (NEGATIVE); URINE LEUKOCYTE ESTERASE SMALL (NEGATIVE); URINE MICROSCOPIC INDICATED? YES; URINE NITRATE POSITIVE (NEGATIVE); URINE PROTEIN NEGATIVE (NEGATIVE); URINE UROBILINOGEN 0.2 E.U./dL (0.2 - 1.0)
[2018-12-09 13:29] LABS: URINE CLARITY CLOUDY (CLEAR); URINE COLOR YELLOW
[2018-12-09 13:30] LABS: URINE WBC 50-100 /hpf (0-5)
[2018-12-09 13:31] LABS: URINE BACTERIA 3+ /hpf (NONE SEEN); URINE EPITHELIAL CELLS OCCASIONAL /lpf (FEW)
--- NOTE | 2018-12-09 13:40 | Diagnostic Imaging Report ---
Right knee (3 views) HISTORY: Pain No acute abnormalities. No fractures. Spur formation noted about the lateral femoral condyle and tibial plateau regions. Mild degenerative changes about the patellofemoral joint area. Chondrocalcinosis is seen probably on a degenerative basis. IMPRESSION: 1. No acute abnormalities 2. Degenerative joint disease 3. Chondrocalcinosis probably on a degenerative basis
--- NOTE | 2018-12-09 13:42 | Diagnostic Imaging Report ---
Pelvis (single view) HISTORY: Pain, trauma No acute bony amenities. No fractures. Marked narrowing of the left hip joint. Femoral heads exhibit normal contours. Severe degenerative changes seen in the visualized lower lumbar spine. IMPRESSION: 1. No acute abnormalities 2. Degenerative changes about the left hip and lower lumbar spine.
--- NOTE | 2018-12-09 13:44 | Diagnostic Imaging Report ---
Right hip (2 views) HISTORY: Pain, trauma No acute bony abnormalities. No fractures are definitely seen. The right femoral head exhibits a normal contour. Joint space is maintained. There is an approximate 6 mm round calcification noted adjacent to the lateral aspect of the greater trochanter. Findings may be on a dystrophic basis. IMPRESSION: 1. No definite acute bony abnormalities. If symptoms persist, a repeat radiograph in 5 days recommended for detection of a subtle or occult fracture.
[2018-12-09] MEDS ORDERED: Levofloxacin 500mg/100mL 500 MG in Premix Fluid 1 BAG IV ONE (14:55)
[2018-12-09] MEDS ORDERED: Levofloxacin 500mg/100mL 500 MG/100 ML BAG IV ONE (15:58)
--- NOTE | 2018-12-10 10:28 | Diagnostic Imaging Report ---
CT right lower extremity without IV contrast History: Pain, rule out fracture Comparison: Right hip and right pelvis x-ray on 12/05/2018 Technique: Axial images were obtained from the right mid pelvis to the right proximal femurs without IV contrast. Reconstructions were made. Total DLP 176, CTD I 5.2 Findings: Distended urinary bladder is noted. There is an impacted right femoral neck fracture with minimal displacement. Mild to moderate degenerative changes right hip joint is noted. No evidence of dislocation. Enthesophyte formation is seen along the greater trochanteric region. No significant focal soft tissue swelling. Nonspecific 3 mm calcification is along the proximal anterior thigh muscles. Degenerative changes of the SI joint is noted. IMPRESSION: Impacted minimally displaced right femoral neck fracture. No dislocation.
== END 2018-12-09 22:20 | disposition short-term general hospital (02) ==
LOC: ER 10:38
DX: S72.001A Fracture of unspecified part of neck of right femur, initial encounter for closed fracture (principal); N39.0 Urinary tract infection, site not specified; F03.90 Unspecified dementia, unspecified severity, without behavioral disturbance, psychotic disturbance, mood disturbance, and anxiety; Z88.0 Allergy status to penicillin; W19.XXXA Unspecified fall, initial encounter; Z91.81 History of falling; Y93.89 Activity, other specified; Y92.89 Other specified places as the place of occurrence of the external cause; Y99.8 Other external cause status
CPT/HCPCS: 99285; 96365; 93005; 72170; 73502; 73564; 73700; 84484; 36415; 85025; 85610; 87086; 81001; 80053; J1956; 73501; 73562-TC-RT